=== PATIENT | female | born 1960 | race Caucasian/White ===

== ENCOUNTER → 2017-04-18 | Outpatient (CLI) | payer MEDICAID ==
[~2017-04-18] MED LIST: ALBU17AE3 IH; ALBU2.5V4; ALPR1T PO; AMLO5TAB2; AMLO5TAB2 PO; ATR20T; ATR20T PO; BIOTIN 1000MCG PO; BUDE6HFA IH; CATHETER FLUSH 10 ML SYR IV PRN; CYAN100014 PO; CYAN10007 PO; CYAN500L PO; DIOVAN 160 MG PO; EST.625T; EST.625T PO; EST45C VG; ESTR0.9T PO; FLC150T; FLC1T; FLC1T PO; GABA300C; GBPN300C PO; HCT25T; HCT25T PO; HYDR-3714 PO; HYDR1TAB PO; HYDROCHLOROTHIAZIDE PO; IBUP-1773 PO; INSASP10V SQ; INSU100I23; INSU100V6; INSU100V6 SQ; IPRA3AMP IH; LANS30CA; LANS30CA PO; LVT.05T; LVT.05T PO; MAGN400C PO; MAGNESIUM W/ZINC PO; MNTL10T; MNTL10T PO; MTF500T PO; MUCUS RELIEF 400 MG PO; MULT-608; MULT-608 PO; NFBIOT1000 PO; NITR100C44 PO; OMG1KC PO; OXYB10TA PO; PHEN200T27 PO; POLY500P24; POTA10CA16 PO; POTA10CA43 PO; POTA20PA3; RASP100C PO; RASPBERRY KETONES PO; ROSU10TA12 PO; SCR1T1; SCR1T1 PO; SERT100T; SITA100T PO; SLMFT1E; SOLI10TA4 PO; SRTR100T PO; TIOT18CA; TIOT18CA2 IH; TRAM-21 PO; TROS60CA2 PO; TROSP20C PO; VITAMIN B6 PO; VLS80C; VLS80C PO; ZLP5T; ZLP5T PO; ZOLP5TAB6 PO
--- NOTE | 2017-04-18 14:35 | Diagnostic Imaging Report ---
EXAMINATION: HIDA with EF measurements Indication: Abdominal pain TECHNIQUE: After the intravenous administration of 5.4 mCi of Tc 99m Choletec, imaging over the abdomen was obtained. This was followed by administration of Ensure orally to stimulate intrinsic CCK secretion, followed by continued imaging with ejection fraction measured. FINDINGS: There is homogeneous uptake in the liver with prompt bile duct and gallbladder filling seen. Bowel activity is seen at 25 minutes. Based on further imaging and gallbladder area of interest activity measurements after the administration of Ensure, the gallbladder ejection fraction is estimated at 23%. IMPRESSION: 1. Normal hepatobiliary uptake and Gallbladder filling. 2. Biliary dyskinesia. Poor gallbladder ejection fraction. Dictated by: Dictated on workstation # [id number]
== END ==
LOC: CARD 11:38
PROVIDERS: ATTEND Surgery
DX: K82.8 Other specified diseases of gallbladder (principal)
CPT/HCPCS: 78227

== ENCOUNTER 2017-04-19 13:38 | Outpatient (CLI) | payer MEDICAID ==
[~2017-04-19] VITALS: Ht 165.1 cm; Wt 78.9 kg
[~2017-04-19 13:38] MED LIST changes: -CATHETER FLUSH 10 ML SYR IV PRN
[2017-04-19 14:11] VITALS: BP 130/69
[2017-04-19 14:53] LABS: BASOPHILS # (AUTO) 0.1 10^3/uL (0.0-0.1); BASOPHILS % (AUTO) 1 % (0-10); EOSINOPHILS # (AUTO) 0.3 10^3/uL (0.0-0.3); EOSINOPHILS % (AUTO) 3 % (0-10); LYMPHOCYTES # (AUTO) 3.5 X 10^3 (1.0-4.0); LYMPHOCYTES % (AUTO) 37 % (12-44); MEAN CORPUSCULAR HEMOGLOBIN 30 PG (25-34); MEAN CORPUSCULAR HGB CONC 34 G/DL (32-36); MEAN CORPUSCULAR VOLUME 89 FL (80-99); MONOCYTES # (AUTO) 0.6 X 10^3 (0.0-1.0); MONOCYTES % (AUTO) 7 % (0-12); NEUTROPHILS % (AUTO) 53 % (42-75); PLATELET COUNT 483 10^3/uL (130-400); RED BLOOD COUNT 3.86 10^6/uL (4.35-5.85); RED CELL DISTRIBUTION WIDTH 13.2 % (10.0-14.5); WHITE BLOOD COUNT 9.5 10^3/uL (4.3-11.0)
[2017-04-19 15:03] LABS: INR 0.9 (0.8-1.4); PROTHROMBIN TIME PATIENT 11.7 SEC (12.2-14.7)
[2017-04-19 15:16] LABS: ALANINE AMINOTRANSFERASE 15 U/L (0-55); ALBUMIN 3.6 GM/DL (3.2-4.5); ANION GAP 10 MMOL/L (5-14); ASPARTATE AMINO TRANSFERASE 14 U/L (5-34); BILIRUBIN,DIRECT < 0.1 MG/DL (0.0-0.3); BILIRUBIN,INDIRECT 0.1 MG/DL; BILIRUBIN,TOTAL 0.2 MG/DL (0.1-1.0); BLOOD UREA NITROGEN 7 MG/DL (7-18); BUN/CREATININE RATIO 9; CALCIUM 9.9 MG/DL (8.5-10.1); CARBON DIOXIDE 28 MMOL/L (21-32); CHLORIDE 96 MMOL/L (98-107); CREATININE SERUM 0.77 MG/DL (0.60-1.30); GFR ESTIMATED > 60; GLUCOSE 308 MG/DL (70-105); POTASSIUM 3.5 MMOL/L (3.6-5.0); SODIUM 134 MMOL/L (135-145); TOTAL PROTEIN 7.1 GM/DL (6.4-8.2)
[2017-04-21] MEDS ORDERED: HYDR-3812 PO (13:28)
[2017-04-21] MEDS ORDERED: SERT100T8 PO (13:28)
[2017-04-21] MEDS ORDERED: MULT1CAP27 PO (13:28)
[2017-04-21] MEDS ORDERED: ZOLP5TAB7 PO (13:28)
[2017-04-21] MEDS ORDERED: RASP100C PO (13:28)
[2017-04-21] MEDS ORDERED: MONT10TA24 PO (13:28)
[2017-04-21] MEDS ORDERED: TIOT18CA2 IH (13:28)
[2017-04-21] MEDS ORDERED: CYAN100088 PO (13:28)
[2017-04-21] MEDS ORDERED: PANT40TA3 PO (13:28)
[2017-04-21] MEDS ORDERED: FOLI1TAB24 PO (13:28)
[2017-04-21] MEDS ORDERED: POTA10CA43 PO (13:28)
[2017-04-21] MEDS ORDERED: INSU100V SQ (13:28)
[2017-04-21] MEDS ORDERED: IBUP-1773 PO (13:28)
[2017-04-21] MEDS ORDERED: ESTR0.9T PO (13:28)
[2017-04-21] MEDS ORDERED: LEVO50TA6 PO (13:28)
[2017-04-21] MEDS ORDERED: SUCR1TAB PO (13:28)
[2017-04-21] MEDS ORDERED: NFBIOT1000 PO (13:28)
[2017-04-21] MEDS ORDERED: VALS160T28 PO (13:28)
[2017-04-21] MEDS ORDERED: SITA100T12 PO (13:28)
[2017-04-21] MEDS ORDERED: HYDR25TA4 PO (13:28)
[2017-04-21] MEDS ORDERED: BUDE10.2 IH (13:28)
[2017-04-21] MEDS ORDERED: OMG1KC PO (13:28)
[2017-04-21] MEDS ORDERED: ALPR1TAB7 PO (13:28)
[2017-04-21] MEDS ORDERED: MIRA50TA PO (13:28)
[2017-04-21] MEDS ORDERED: METF500T4 PO (13:28)
[2017-04-21] MEDS ORDERED: GABA-488 PO (13:28)
[2017-04-21] MEDS ORDERED: INSU100V6 SQ ×2 (13:29)
== END 2017-04-19 15:00 ==
LOC: PREOP 13:38
PROVIDERS: ATTEND Surgery
DX: Z01.818 Encounter for other preprocedural examination (principal); K44.9 Diaphragmatic hernia without obstruction or gangrene
CPT/HCPCS: 36415; 80048; 80076; 85025; 85610; 87081

== ENCOUNTER 2017-04-22 07:16 | Day surgery (SDC) | payer MEDICAID ==
[~2017-04-22] VITALS: Ht 165.1 cm; Wt 78.9 kg
[~2017-04-22 07:16] MED LIST changes: +ALPR1TAB7 PO; +BUDE10.2 IH; +CYAN100088 PO; +FOLI1TAB24 PO; +GABA-488 PO; +HYDR-3812 PO; +HYDR25TA4 PO; +INSU100V SQ; +LEVO50TA6 PO; +METF500T4 PO; +MIRA50TA PO; +MONT10TA24 PO; +MULT1CAP27 PO; +PANT40TA3 PO; +SERT100T8 PO; +SITA100T12 PO; +SUCR1TAB PO; +VALS160T28 PO; +ZOLP5TAB7 PO
[2017-04-22 07:20] VITALS: BP 133/89
[2017-04-22 07:25] VITALS: BP 133/89
[2017-04-22] MEDS ORDERED: CATHETER FLUSH 10 ML SYR IV PRN (08:15)
[2017-04-22] MEDS ORDERED: ceFAZolin 1 GM/NS 50 ML IVPB IV ONE ×2 (08:15)
[2017-04-22] MEDS: LACTATED RINGERS 1,000 ML IV PRN ×2 (08:18→09:36)
[2017-04-22] MEDS ORDERED: MELA5TAB14 PO (08:33)
[2017-04-22] MEDS ORDERED: BUPIVACAINE 0.5% 30 ML (SENSORCAINE) VIAL ONE (08:35)
[2017-04-22] MEDS ORDERED: MIDAZOLAM 2 MG/2 ML (VERSED) VIAL ONE (08:54)
[2017-04-22] MEDS ORDERED: SEVOFLURANE (ULTANE) 15 ML INHAL SOLN ONE ×3 (08:54→09:52)
[2017-04-22] MEDS ORDERED: ONDANSETRON 4 MG/2 ML (SDV) Z0FRAN ONE (08:54)
[2017-04-22] MEDS ORDERED: LIDOCAINE PF 2% 5 ML (XYLOCAINE) VIAL ONE (08:54)
[2017-04-22] MEDS ORDERED: fentaNYL INJECTION 100 MCG/2 ML AMP ONE ×2 (08:54→09:30)
[2017-04-22] MEDS ORDERED: ROCURONIUM 50 MG/5 ML (ZEMURON) VIAL IV ONE (08:54)
[2017-04-22] MEDS ORDERED: proPOfol 200 MG/20 ML (DIPRIVAN) VIAL IV ONE (08:54)
--- NOTE | 2017-04-22 09:07 | Progress Note-Pre Operative ---
Pre-Operative Progress Note H&P Reviewed The H&P was reviewed, patient examined and no changes noted. Time Seen by Provider: 09:00 Date H&P Reviewed: Apr 22, 2017 Time H&P Reviewed: 09:00 Pre-Operative Diagnosis: Biliary Dyskinesia SRI LINDSEY DO Apr 22, 2017 09:07
[2017-04-22] MEDS ORDERED: HYDROcodone/APAP 5 MG/325 MG (LORTAB) TAB PO PRN (09:15)
[2017-04-22] MEDS ORDERED: HYDR-3812 PO (09:20)
[2017-04-22] MEDS ORDERED: GLYCOPYRROLATE 0.2 MG/ML (ROBINUL) 2 ML VIAL ONE (09:50)
[2017-04-22] MEDS ORDERED: NEOSTIGMINE (BLOXIVERZ ) 1 MG/1ML 10 ML VIAL ONE (09:50)
[2017-04-22] MEDS ORDERED: morphine INJ 10 MG/ML 1ML (SYR OR VIAL) IVP PRN (10:15)
[2017-04-22] MEDS ORDERED: ONDANSETRON 4 MG/2 ML (SDV) Z0FRAN IVP PRN (10:15)
[2017-04-22] MEDS: HYDROmorphone (DILAUDID) 2 MG/ML VIAL IVP PRN ×3 (10:32→10:52)
[2017-04-22 11:15] VITALS: BP 134/77
[2017-04-22 11:45] VITALS: BP 135/75
[2017-04-22 12:15] VITALS: BP 146/74
--- OUTSIDE RECORDS SUMMARY | 2017-04-22 21:05 | XMS REPORT ---
Author Author [facility]Z [facility] Address [address] [place] [address] Care Team Providers Care Loom Checker Name Role Phone BRANDYN RAMIREZ Unavailable PROBLEMS Unknown Problems ALLERGIES No Information SOCIAL HISTORY Never Assessed PLAN OF CARE VITAL SIGNS MEDICATIONS No Known Medications RESULTS No Results PROCEDURES No Known procedures IMMUNIZATIONS No Known Immunizations MEDICAL (GENERAL) HISTORY Type Description Date Medical History Diabetic Medical History Palamanery stenosies Medical History High blood pres Medical History Low thyerorid Surgical History carpel tunnel left wrist JulSeptember 2016 Surgical History carpel tunnel right wrist 2016 Surgical History Left arm compound compress nerve September 2016 Surgical History tuble lygation 1982 Surgical History exploratory surg. 1983 Surgical History historictomy jun Surgical History carpel tunnel release both wrist 1985 Surgical History 3 bladder surg and 2 rectacile repair [id number]
--- NOTE | 2017-04-26 11:20 | OPERATIVE REPORT ---
DATE OF SERVICE: PREOPERATIVE DIAGNOSIS: Biliary dyskinesia. POSTOPERATIVE DIAGNOSIS: Biliary dyskinesia. SURGEON: Radha Lindsey DO ANESTHESIA: General. PROCEDURE: Laparoscopic cholecystectomy. INDICATION FOR PROCEDURE: The patient is a 56-year-old female who complained of postprandial pain. Ultrasound was normal. HIDA scan showed biliary dyskinesia. Case was discussed with the patient. Informed consent was obtained for procedure. DESCRIPTION OF OPERATIVE PROCEDURE: The patient was placed in supine position, prepped and draped in the usual sterile manner. The abdomen was entered using a 5 mm port in the left upper quadrant. Pneumoperitoneum was established. A generalized examination of the abdomen was performed. Four other ports were placed in the appropriate position. Next, the fundus of the gallbladder was grasped and retracted cephaladly. The infundibulum was grasped and retracted laterally. The cystic duct was dissected circumferentially. Three clips were placed proximal, one distal. The cystic duct was then cut. The cystic artery was then dissected circumferentially. Two clips were placed proximal, one distal. Cystic artery was then cut. The gallbladder was dissected off the liver bed using electrocautery. After this was done, it was placed in an Endocatch bag and removed from the abdomen. Hemostasis was then achieved. After that, irrigation was used. The 12-mm ports were closed using 0 Vicryl under direct visualization. Next, pneumoperitoneum was allowed to escape the abdominal cavity. Everything looked good. All ports were removed under direct visualization. Next, the skin incision was closed using 4-0 Monocryl. Dry dressings were then placed. There were no complications. Job ID: [id number] DocumentID: [id number] Dictated Date: 04/25/2017 14:47:53 Hr Analyst Date: 04/26/2017 02:24:40 Dictated By: RADHA LINDSEY DO
== END 2017-04-22 12:35 | disposition home or self-care (01) ==
LOC: SDC 07:16
PROVIDERS: ATTEND Surgery
DX: K82.8 Other specified diseases of gallbladder (principal); I10 Essential (primary) hypertension; E78.5 Hyperlipidemia, unspecified; F17.210 Nicotine dependence, cigarettes, uncomplicated; J44.9 Chronic obstructive pulmonary disease, unspecified; G43.909 Migraine, unspecified, not intractable, without status migrainosus; F41.9 Anxiety disorder, unspecified; M54.9 Dorsalgia, unspecified; E11.9 Type 2 diabetes mellitus without complications; E03.9 Hypothyroidism, unspecified; Z79.899 Other long term (current) drug therapy
CPT/HCPCS: 82962; 94664

== ENCOUNTER → 2018-01-13 | Outpatient (CLI) | payer MEDICAID ==
[~2018-01-13] MED LIST changes: +ACHD5005 PO; -HYDR-3812 PO; +MELA5TAB14 PO; -METF500T4 PO; +METF500T5 PO; +RT-ALBUTEROL SULF 2.5 MG/3 ML PRE-MIX VIAL INH ONE; -VALS160T28 PO; +VALS160T29 PO
== END ==
LOC: RT 15:28
PROVIDERS: ATTEND Nurse Practitioner Family
DX: I37.0 Nonrheumatic pulmonary valve stenosis (principal); R06.09 Other forms of dyspnea; E78.5 Hyperlipidemia, unspecified; I10 Essential (primary) hypertension
CPT/HCPCS: 94060; 94726; 94729

== ENCOUNTER → 2018-01-19 | Outpatient (CLI) | payer MEDICAID ==
[~2018-01-19] MED LIST changes: -RT-ALBUTEROL SULF 2.5 MG/3 ML PRE-MIX VIAL INH ONE
== END ==
LOC: CARD 12:13
PROVIDERS: ATTEND Nurse Practitioner Family
DX: I37.0 Nonrheumatic pulmonary valve stenosis (principal); R06.09 Other forms of dyspnea; I10 Essential (primary) hypertension; E78.5 Hyperlipidemia, unspecified
CPT/HCPCS: 93306

== ENCOUNTER → 2018-09-21 | Outpatient (CLI) | payer MEDICAID ==
[~2018-09-21] MED LIST changes: +METF-397 PO; -METF500T5 PO
--- NOTE | 2018-09-21 19:50 | Diagnostic Imaging Report ---
INDICATION: History of tobacco use with a 44 pack year history. Current tobacco use. TECHNIQUE: Noncontrast, low-dose CT imaging performed according to lung cancer screening protocol. COMPARISON: CT chest, 04/01/2016. FINDINGS: HEART/MEDIASTINUM: Heart size normal. Thoracic aortic contour unremarkable. A few small, non-pathologically enlarged mediastinal lymph nodes are present. LUNGS: Mildly advanced emphysematous changes are present. No focal infiltrate. MEASURED PULMONARY NODULES: Calcified granuloma. Right lower lobe and superior aspect right middle lobe adjacent to fissure plane. Image 137/272, faint wispy-like nodular density about the medial posterior right lower lobe, less than 4 mm in size. OTHER: None. IMPRESSION: Small calcified granuloma as well as faint wispy-like nodular density in the right lower lobe. Mildly advanced emphysematous changes present. LUNG-RADS CATEGORY: 2A LUNG SCREENING MANAGEMENT/RECOMMENDATIONS: Continued annual screening with low dose CT in 12 months. Notes: Lung rads category 1 or 2 does not mean that an individual does not have lung cancer or other active disease process, but rather nothing is identified to meet criteria for current lung pathology. Therefore, continued annual lung cancer screening should be performed. It is noted that this is a low dose CT examination. As a technical result, the examination is limited in overall assessment compared to a conventional CT examination of the chest. Dictated by: Dictated on workstation # [id number]
== END ==
LOC: RAD 14:03
PROVIDERS: ATTEND Nurse Practitioner Family
DX: Z12.2 Encounter for screening for malignant neoplasm of respiratory organs (principal); J84.10 Pulmonary fibrosis, unspecified; J43.9 Emphysema, unspecified; F17.210 Nicotine dependence, cigarettes, uncomplicated; J45.909 Unspecified asthma, uncomplicated

== ENCOUNTER 2018-09-26 14:39 | Outpatient (CLI) | payer MEDICAID ==
[~2018-09-26] VITALS: Ht 165.1 cm; Wt 77.6 kg
[2018-09-26] MEDS ORDERED: ASPI-586 PO (15:08)
[2018-09-26] MEDS ORDERED: ATOR20TA66 PO (15:08)
[2018-09-26] MEDS ORDERED: ALB0.5V INH (15:08)
[2018-09-26] MEDS ORDERED: MELA10CA2 PO (15:08)
[2018-09-26] MEDS ORDERED: HYDR-3812 PO (15:08)
[2018-09-26] MEDS ORDERED: ZOLP5TAB7 PO (15:08)
[2018-09-26] MEDS ORDERED: ESTR0.9T PO (15:08)
[2018-09-26] MEDS ORDERED: RT-ALBUINH IH (15:08)
[2018-09-26] MEDS ORDERED: GUAI400T44 PO (15:08)
[2018-09-26] MEDS ORDERED: MAGN400T7 PO (15:08)
[2018-09-26 15:39] VITALS: BP 151/74
== END 2018-09-26 15:52 | disposition home or self-care (01) ==
LOC: PREOP 14:39
PROVIDERS: ATTEND Orthopaedic Surgery Orthopaedic Surgery of the Spine
DX: Z01.818 Encounter for other preprocedural examination (principal)
CPT/HCPCS: 87081

== ENCOUNTER 2018-10-09 07:06 | Day surgery (SDC) | payer MEDICAID ==
[~2018-10-09] VITALS: Ht 165.1 cm; Wt 77.6 kg
[~2018-10-09 07:06] MED LIST changes: +ALB0.5V INH; +ASPI-586 PO; +ATOR20TA66 PO; +GUAI400T44 PO; +HYDR-3812 PO; +MAGN400T7 PO; +MELA10CA2 PO; +RT-ALBUINH IH
--- OUTSIDE RECORDS SUMMARY | 2018-10-09 07:09 | XMS REPORT ---
Author Author BRANDYN RAMIREZ Organization [facility] Address [address] [place] [address] Care Team Providers Care Electric Lift Truck Driver Name Role Phone BRANDYN RAMIREZ Unavailable PROBLEMS Unknown Problems ALLERGIES Substance Reaction Event Type Date Status Oxycel Cotton-Type Pledget Unknown Drug Allergy Oct, Active SOCIAL HISTORY Never Assessed PLAN OF CARE VITAL SIGNS Blood pressure systolic 115 mmHg 2016-10-18 Blood pressure diastolic 64 mmHg 2016-10-18 MEDICATIONS Medication Instructions Dosage Frequency Start Date End Date Duration Status Fish Oil Active Humalog Active Sertraline HCl Active Myrbetriq Active Potassium Active Hydrochlorothiazide Active Januvia Active Valsartan Active Zolpidem & Diet Manage Prod Active Wzckzcnjcjl-WXEN-Exyrhmb Prod Active Biotin Active Folic Acid Active Metformin & Diet Manage Prod Active Symbicort Active Sucralfate Active Multivitamin Adults 50+ Active Lantus Active Premarin Active Alprazolam Active BD Insulin Syringe Half-Unit Active ibuprofen Active Gabapentin Active Pantoprazole Sodium Active Spiriva HandiHaler Active Amoxicillin 500 MG Orally 4 times a day 1 capsule 6h 10 days Active Levothyroxine Sodium Active Vitamin B 12 Active Montelukast Sodium Active RESULTS No Results PROCEDURES Procedure Date Ordered Result Body Site LTD ORAL EVALUATION - PROBLEM FOCUS October 18, 2016 INTRAORL-PERIAPICAL 1 FILM 10049 October 18, 2016 PANORAMIC FILM SEE ALSO CODE 84006 October 18, 2016 IMMUNIZATIONS No Known Immunizations MEDICAL (GENERAL) HISTORY Type Description Date Medical History Diabetic Medical History Palamanery stenosies Medical History High blood pres Medical History Low thyerorid Surgical History carpel tunnel left wrist JulSeptember 2016 Surgical History carpel tunnel right wrist b 2016 Surgical History Left arm compound compress nerve September 2016 Surgical History tuble lygation 1982 Surgical History exploratory surg. 1983 Surgical History historictomy jun Surgical History carpel tunnel release both wrist 1985 Surgical History 3 bladder surg and 2 rectacile repair [id number]
--- OUTSIDE RECORDS SUMMARY | 2018-10-09 07:09 | XMS REPORT ---
Author Author [facility]Z [facility] [place] Address [address] [place] [address] Care Team Providers Care Audio Visual Aids Director Name Role Phone BRANDYN RAMIREZ Unavailable PROBLEMS Unknown Problems ALLERGIES Substance Reaction Event Type Date Status Oxycel Cotton-Type Pledget Unknown Drug Allergy November, Active ENCOUNTERS Encounter Location Date Diagnosis [facility] [place] [address] [place] [address] [address] [id number] [place] [id number] November, Dental examination Z01.20 [facility] [address] [place] [address] [address] [id number] [place] [id number] November, Dental examination Z01.20 [facility] [place] [address] [place] [address] [address] [id number] [place] [id number] 16 Oct, 2016 [facility] [place] [address] [place] [address] [address] [id number] [place] [id number] Oct, [facility] [place] [address] [place] [address] [address] [id number] [place] [id number] Oct, [facility] [place] [address] [place] [address] [address] [id number] [place] [id number] Oct, Dental examination Z01.20 [facility] [place] [address] [place] [address] [address] [id number] [place] [id number] Sep, [facility] [place] [address] [place] [address] [address] [id number] [place] [id number] Aug, [facility] [address] [facility] [id number] [place] [id number] May, IMMUNIZATIONS No Known Immunizations SOCIAL HISTORY Never Assessed REASON FOR VISIT recheck PLAN OF CARE VITAL SIGNS MEDICATIONS Medication Instructions Dosage Frequency Start Date End Date Duration Status Vitamin B 12 Active Alprazolam Active Pantoprazole Sodium Active Symbicort Active Sertraline HCl Active Myrbetriq Active Januvia Active Amoxicillin 500 MG Orally 4 times a day 1 capsule 6h 10 days Active Zolpidem & Diet Manage Prod Active Hydrochlorothiazide Active Biotin Active Fish Oil Active Potassium Active Humalog Active BD Insulin Syringe Half-Unit Active Spiriva HandiHaler Active Vnbmaufefhm-NGQG-Ahzyigg Prod Active Valsartan Active Folic Acid Active Metformin & Diet Manage Prod Active Premarin Active Montelukast Sodium Active Gabapentin Active ibuprofen Active Sucralfate Active Lantus Active Levothyroxine Sodium Active Multivitamin Adults 50+ Active Amoxicillin 500 MG 4 capsules one hour before dental treatment Active RESULTS No Results PROCEDURES Procedure Date Ordered Result Body Site Dental no charge November 25, 2016 INSTRUCTIONS MEDICATIONS ADMINISTERED No Known Medications MEDICAL (GENERAL) HISTORY Type Description Date Medical [...] 3 bladder surg and 2 rectacile repair [id number]
--- OUTSIDE RECORDS SUMMARY | 2018-10-09 07:09 | XMS REPORT ---
Author Author [facility] [place] Address [address] [place] [address] Care Team Providers Care Pattern Filer Name Role Phone BRANDYN RAMIREZ Unavailable PROBLEMS [...] 3 bladder surg and 2 rectacile repair [id number]
--- OUTSIDE RECORDS SUMMARY | 2018-10-09 07:09 | XMS REPORT ---
Author Author [facility]Z [facility] [place] Address [address] [place] [address] Care Team Providers Care Book Trimmer Name Role Phone BRANDYN RAMIREZ Unavailable PROBLEMS Unknown Problems ALLERGIES Substance Reaction Event Type Date Status Oxycel Cotton-Type Pledget Unknown Drug Allergy November, Active ENCOUNTERS Encounter Location Date Diagnosis [facility] [place] [address] [place] [address] [address] [id number] [place] [id number] November, [facility] [place] [address] [place] [address] [address] [id number] [place] [id number] November, [facility]01.[facility] [place] [address] [place] [address] [address] [id number] [place] [id number] 16 Oct, 2016 [facility] [place] [address] [place] [address] [address] [id number] [place] [id number] Oct, [facility] [place] [address] [place] [address] [address] [id number] [place] [id number] Oct, [facility] [place] [address] [place] [address] [address] [id number] [place] [id number] Oct, Dental examination Z01.20 [facility] [place] [address] [place] [address] [address] [id number] [place] [id number] Sep, [facility] [place] [address] [place] [address] [address] [id number] [place] [id number] Aug, [facility] [address] [facility] [id number] [place] [phone] May, IMMUNIZATIONS No Known Immunizations SOCIAL HISTORY Never Assessed REASON FOR VISIT o and r #22 PLAN OF CARE Activity Details Follow Up FATOUMATA/Prophy Reason: VITAL SIGNS Blood pressure systolic 138 mmHg 2016-11-11 Blood pressure diastolic 91 mmHg 2016-11-11 MEDICATIONS Medication Instructions Dosage Frequency Start Date End Date Duration Status Vitamin B 12 Active Folic Acid Active Potassium Active Sucralfate Active ibuprofen Active Yxjgrwawvll-QPBL-Amfbdle Prod Active Januvia Active Amoxicillin 500 MG 4 capsules one hour before dental treatment Active Zolpidem & Diet Manage Prod Active Hydrochlorothiazide Active Multivitamin Adults 50+ Active Biotin Active Pantoprazole Sodium Active Metformin & Diet Manage Prod Active Premarin Active BD Insulin Syringe Half-Unit Active Myrbetriq Active Lantus Active Alprazolam Active Levothyroxine Sodium Active Spiriva HandiHaler Active Montelukast Sodium Active Amoxicillin 500 MG Orally 4 times a day 1 capsule 6h 10 days Active Sertraline HCl Active Symbicort Active Valsartan Active Humalog Active Fish Oil Active Gabapentin Active RESULTS No Results PROCEDURES Procedure Date Ordered Result Body Site RSN COMPOS-4/> SURF/W/INCISAL ANG November 11, 2016 Billing Notes on claim November 11, 2016 INSTRUCTIONS MEDICATIONS ADMINISTERED No Known Medications [...] 3 bladder surg and 2 rectacile repair [id number]
[2018-10-09 07:10] VITALS: BP 175/90
--- OUTSIDE RECORDS SUMMARY | 2018-10-09 07:12 | XMS REPORT | Continuity of Care Document ---
Author Author [facility] [address] Organization [facility] [address] Address Unknown Phone Unavailable Allergies Active Description Code Type Severity Reaction Onset Reported/Identified Relationship to Patient Clinical Status Yes OXYCONTIN OXYCONTIN SEVERE Yes OxyCONTIN Drug N/A [id number] Yes HYDROCODONE-ACETAMINOPHEN UNKNOWN UNKNOWN Yes OXYCONTIN SEVERE RESPIRATORY DISTRESS Yes oxycodone [id number] Drug Allergy Mild UPSET STOMACH 10/30/2009 Yes aspirin [id number] Drug Allergy Unknown GI BLEED 10/30/2009 Yes oxycodone [id number] Drug Allergy Severe RESP DEPRESSION 04/19/2017 Yes morphine [id number] Drug Allergy Severe SEVERE GI UPSET 04/22/2017 Medications Medication Packaging Start Date Stop Date Route Dosage Sig NORMAL SALINE 1000CC IV BAG INJ 0.9 % (NS 1000CC IV BAG) ml 07/08/2016 07/23/2016 CONTINUOUSEVERY 0 Hour IPRATROPIUM/ALBUTEROL INH SOLN INH 0 (DUO-NEB INH SOLN) MLS 07/26/2016 08/02/2016 QID&0600,1100,1600,2100 NORMAL SALINE 1000CC IV BAG INJ 0.9 % (NS 1000CC IV BAG) ml 08/19/2016 09/03/2016 CONTINUOUSEVERY 0 Hour INSULIN REGULAR HUMAN INJ 100 UNITS/CC (HUMULIN R / NOVOLIN R INSULIN) UNITS 08/19/2016 08/19/2016 ONCE&0832 CEFAZOLIN VIAL INJ 1 GM (ANCEF) GM 08/19/2016 08/19/2016 ONCE&0845 HYDROCODONE/APAP 7.5/325 TAB 0 (MADI-TAB 7.5/325) TAB 08/19/2016 08/19/2016 ONCE&0936 HYDROMORPHONE AMP INJ 2 MG/CC (DILAUDID 1CC AMP) MG 08/19/2016 08/19/2016 ONCE&0950 NORMAL SALINE 1000CC IV BAG INJ 0.9 % (NS 1000CC IV BAG) ml 09/30/2016 10/15/2016 CONTINUOUSEVERY 0 Hour NORMAL SALINE 1000CC IV BAG INJ 0.9 % (NS 1000CC IV BAG) ml 02/22/2017 03/09/2017 CONTINUOUSEVERY 0 Hour TETANUS,DIPTH,PERT ADULT INJ 0 (ADACEL SYRINGE) ml 03/03/2017 03/03/2017 ONCE&2139 IBUPROFEN TAB 600 MG (MOTRIN) MG 09/08/2017 PRN TID LEVOFLOXACIN TAB 750 MG (LEVAQUIN) MG 09/01/2017 09/01/2017 ONCE&1415 INSULIN LISPRO VIAL INJ 100 UNITS/CC (HUMALOG VIAL) UNITS 09/01/2017 09/01/2017 ONCE&0630,1130,1630 LANTUS 100 UNITS/ML VIAL (insulin glargine) subQ solution UNITS 09/01/2017 09/01/2017 ONCE&0800,2000 CEFEPIME PREMIX BAG IV 1 GM/50CC (MAXIPIME PREMIX BAG) GM 09/01/2017 09/08/2017 BID&0300,1500 Pneumococcal 23-ted vaccine inj syringe (PneumoVax-23) CLINICS ML 09/01/2017 09/01/2017 ONCE&1533 Fluarix QUAD [id number] (PF) (flu vac 36mos up(PF)Adult IM syringe ML 09/01/2017 09/01/2017 ONCE&1551 IPRATROPIUM/ALBUTEROL INH SOLN (DUO-NEB INH SOLN) MLS 09/01/2017 09/08/2017 QID&0600,1100,1600,2100 INSULIN ASPART PEN INJ 100 UNITS/CC (NOVOLOG FLEXPEN) UNITS 09/01/2017 10/01/2017 AC&0630,1130,1630 INSULIN LISPRO VIAL INJ 100 UNITS/CC (HUMALOG VIAL) UNITS 09/01/2017 09/11/2017 AC&0630,1130,1630 LACTOBACILLUS BULGARIS TAB (LACTINEX BULGARIS) tab 09/01/2017 09/11/2017 QID&0800,1200,1700,2200 SUCRALFATE TAB 1 GM (CARAFATE) GM 09/01/2017 09/11/2017 QID&0800,1200,1700,2200 HYDROCODONE/APAP 5MG/325MG TAB 5 MG/325MG (MADI-TAB 5/325) TAB 09/01/2017 09/11/2017 PRN Q6H BUDESONIDE/FORMOTEROL INH 160 /4.5MCG (SYMBICORT) PUFF 09/01/2017 09/08/2017 Q12H&0600,1800 POTASSIUM CHLORIDE TAB 10 MEQ (K-DUR) TABLET(S ) 09/01/2017 09/11/2017 BID&0800,2000 METFORMIN TAB 500 MG (GLUCOPHAGE) MG 09/01/2017 09/11/2017 BID&0800,2000 ALPRAZOLAM TAB 1 MG (XANAX) MG 09/11/2017 PRN BID LANTUS 100 UNITS/ML VIAL (insulin glargine) subQ solution UNITS 09/01/2017 09/11/2017 BID&0800,2000 CEFEPIME PREMIX BAG IV 1 GM/50CC (MAXIPIME PREMIX BAG) GM 09/01/2017 09/08/2017 BID&0800,2000 INSULIN DETEMIR PEN INJ 100 UNITS/CC (LEVEMIR FLEXPEN) UNITS 09/01/2017 09/30/2017 QHS&2100 INSULIN ASPART PEN INJ 100 UNITS/CC (NOVOLOG FLEXPEN) UNITS 09/01/2017 09/01/2017 ONCE&2234 PREMARIN 0.625 MG TABLET (conjugated estrogens) oral tablet Dose(s) 09/02/2017 09/11/2017 QAM&0800 VALSARTAN TAB 80 MG (DIOVAN) MG 09/11/2017 QAM&0800 SITAGLIPTIN TAB 100 MG (JANUVIA) MG 09/02/2017 09/11/2017 QAM&0800 PANTOPRAZOLE TAB 40 MG (PROTONIX) MG 09/02/2017 09/11/2017 Daily&0900 SERTRALINE TAB 50 MG (ZOLOFT) MG 09/08/2017 Daily&0900 GABAPENTIN CAP 300 MG (NEURONTIN) MG 09/02/2017 09/08/2017 Daily&0900 FOLIC ACID TAB 1 MG MG 09/02/2017 09/11/2017 Daily& 0900 HYDROCHLOROTHIAZIDE CAP 12.5 MG (HYDRODIURIL) MG 09/02/2017 09/11/2017 Daily&0900 LEVOFLOXACIN PREMIX IV BAG INJ 750 MG (LEVAQUIN PREMIX IV BAG) MG 09/02/2017 09/08/2017 Daily&0900 Hydrochlorothiazide oral tablet 25mg MG 09/02/2017 09/08/2017 Daily&0900 TIOTROPIUM CAP 18 MCG (SPIRIVA) MCG 09/02/2017 09/08/2017 Daily&0900 LEVOTHYROXINE TAB 50 MCG (SYNTHROID) MCG 09/02/2017 09/11/2017 Daily&0900 MONTELUKAST TAB 10 MG (SINGULAIR) MG 09/02/2017 09/11/2017 Daily&0900 PANTOPAZOLE VIAL INJ 40 MG (PROTONIX IV) MG 09/02/2017 09/11/2017 Daily&0900 GUAIFENESIN TAB 600 MG (MUCINEX) MG 09/02/2017 09/09/2017 Q12H&0600,1800 ONDANSETRON VIAL INJ 4 MG/2CC (ZOFRAN 2CC VIAL) MG 09/03/2017 09/10/2017 PRN Q6H ACETAMINOPHEN ORAL TABLET 325mg(Tylenol) MG 09/04/2017 10/03/2017 PRN EVERY 4 Hour NORMAL SALINE 1000CC IV BAG INJ 0.9 % (NS 1000CC IV BAG) ml 09/04/2017 09/19/2017 CONTINUOUSEVERY 0 Hour TRIAMCINOLONE FORTE INJ 40 MG/CC (KENALOG) MG 10/15/2017 10/15/2017 ONCE&2324 LACTATED RINGERS 1000CC IV BAG INJ ml 10/27/2017 11/03/2017 CONTINUOUSEVERY 0 Hour CEFAZOLIN VIAL INJ 1 GM (ANCEF) GM 10/27/2017 10/27/2017 ONCE&0715 FENTANYL INJ 100 MCG/2CC VIAL MCG 10/27/2017 10/27/2017 ONCE&1003 HYDROCODONE/APAP 5MG/325MG TAB 5 MG/325MG (MADI-TAB 5/325) TAB 04/27/2018 04/27/2018 PRN ONCE KETOROLAC VIAL INJ 60 MG/2CC (TORADOL VIAL) MG 04/27/2018 04/27/2018 ONCE&1120 Flu vacc [id number] Persons 6mo T older(PF) IM syringe/vial(Fluarix QUAD) Adult ML 04/27/2018 04/27/2018 ONCE&1220 ORPHENADRINE INJ 60 MG/2CC (NORFLEX) MG 09/19/2018 09/19/2018 ONCE&1813 KETOROLAC VIAL INJ 60 MG/2CC (TORADOL VIAL) MG 09/19/2018 09/19/2018 ONCE&1813 PREDNISONE TAB 10 MG (DELTASONE) MG 09/19/2018 09/19/2018 ONCE&1838 Problems Date Dx Coded Attending Type Code Diagnosis Diagnosed By KALEN WHITTEN APRN Ot J18.9 PNEUMONIA, UNSPECIFIED ORGANISM 11/18/2009 Ot 041.84 BACTERIAL INFECTION DUE TO OTHER ANAEROB 11/18/2009 Ot 250.00 DIAB SAMEER WO COMPL, TYPE II OR UNSPEC TY 11/18/2009 Ot 682.2 CELLULITIS OF TRUNK 11/18/2009 Ot 998.12 HEMATOMA COMPLIC A PROC 11/18/2009 Ot 998.59 OTH POSTOPER INFECTION 11/24/2009 Ot 250.00 11/24/2009 Ot 305.1 11/24/2009 Ot 417.8 11/24/2009 Ot 682.2 11/24/2009 Ot 998.59 05/28/2010 Ot 214.1 05/28/2010 Ot 530.11 05/28/2010 Ot 553.3 05/28/2010 Ot V58.69 05/09/2013 JET MENDEZ, BA Marie Ot 250.00 DIAB SAMEER WO COMPL, TYPE II OR UNSPEC TY 05/09/2013 BA CHAUDHARY MD Ot 618.04 RECTOCELE 05/09/2013 BA CHAUDHARY MD Ot V03.82 PROPHYLACTIC VACC AGAINST STREPTOCOCCUS 05/09/2013 BA CHAUDHARY MD Ot V04.81 ND FOR PROPHYLACTIC VACCIN AND INOCULATI 05/09/2013 BA CHAUDHARY MD Ot V58.67 LONG-TERM (CURRENT) USE OF INSULIN 10/26/2013 RONNA VIDES DO Ot 296.90 UNSPECIFIED EPISODIC MOOD DISORDER 10/26/2013 RONNA VIDES DO Ot 401.9 HYPERTENSION NOS 10/26/2013 RONNA VIDES DO Ot 780.52 INSOMNIA, UNSPECIFIED 10/26/2013 RONNA VIDES DO Ot 784.0 HEADACHE 10/26/2013 RONNA VIDES DO Ot 786.09 RESPIRATORY ABNORM NEC 06/08/2014 CHOU, PETER J NETWORK ADMINISTRATOR Ot 250.00 DIAB SAMEER WO COMPL, TYPE II OR UNSPEC TY 06/08/2014 DILSHAD CHOU NETWORK ADMINISTRATOR Ot 724.2 LUMBAGO 06/08/2014 DILSHAD CHOU NETWORK ADMINISTRATOR Ot 724.4 LUMBOSACRAL NEURITIS NOS 06/08/2014 DILSHAD CHOU NETWORK ADMINISTRATOR Ot V58.67 LONG-TERM (CURRENT) USE OF INSULIN 06/08/2014 DILSHAD CHOU NETWORK ADMINISTRATOR Ot V58.69 OTH MED,LT,CURRENT USE 11/22/2014 Ot 618.04 11/22/2014 Ot 625.6 11/22/2014 Ot V72.63 11/22/2014 Ot V72.81 11/22/2014 Ot V74.8 11/22/2014 Ot 396.3 11/22/2014 Ot 397.0 11/22/2014 Ot 417.8 11/22/2014 Ot 272.4 11/22/2014 Ot 401.9 11/22/2014 Ot 786.09 11/22/2014 Ot 780.50 11/22/2014 Ot 250.00 11/22/2014 Ot 780.79 11/22/2014 Ot V58.69 11/22/2014 Ot 531.90 11/22/2014 Ot 553.3 11/22/2014 Ot 733.90 11/22/2014 Ot V72.83 11/22/2014 Ot V74.8 11/22/2014 Ot 250.00 11/22/2014 Ot 272.4 11/22/2014 Ot 276.8 11/22/2014 Ot 244.9 11/22/2014 Ot 272.4 11/22/2014 Ot 250.00 11/22/2014 Ot 272.4 11/22/2014 Ot 397.0 11/22/2014 Ot 746.02 11/22/2014 Ot 786.50 11/22/2014 Ot V58.69 11/22/2014 Ot 272.4 11/22/2014 Ot 746.02 11/22/2014 Ot 786.50 11/22/2014 Ot V58.69 11/22/2014 Ot 250.00 11/22/2014 Ot 401.9 11/22/2014 Ot 424.3 11/22/2014 Ot 786.09 11/22/2014 COOKIE MENDEZ FACC, RANCHO SIMS CCDS Ot 416.8 11/22/2014 COOKIE MD FACC, ALI FACP CCDS Ot 786.09 11/22/2014 JET MENDEZ, BA A Ot 618.04 11/22/2014 JET MENDEZ, BA A Ot V72.63 11/22/2014 JET MENDEZ, BA A Ot V74.8 11/22/2014 JET MENDEZ, BA Marie Ot V76.12 11/22/2014 COOKIE MENDEZ FACC, ALI FACP CCDS Ot 250.00 11/22/2014 COOKIE MENDEZ FACC, ALI FACP CCDS Ot 401.9 11/22/2014 COOKIE MENDEZ FACC, ALI FACP CCDS Ot 424.3 11/22/2014 COOKIE MENDEZ FACC, ALI FACP CCDS Ot 729.81 11/22/2014 COOKIE MENDEZ FACC, ALI FACP CCDS Ot 250.00 11/22/2014 COOKIE MENDEZ FACC, ALI FACP CCDS Ot 401.9 11/22/2014 COOKIE MENDEZ FACC, ALI FACP CCDS Ot 416.8 11/22/2014 COOKIE MENDEZ FACC, ALI FACP CCDS Ot 424.3 11/22/2014 COOKIE MENDEZ FACC, ALI FACP CCDS Ot 729.81 11/22/2014 COOKIE MENDEZ FACC, ALI FACP CCDS Ot 250.00 11/22/2014 COOKIE MENDEZ FACC, ALI FACP CCDS Ot 401.9 11/22/2014 COOKIE MENDEZ FACC, ALI FACP CCDS Ot 424.3 11/22/2014 COOKIE MENDEZ FACC, ALI FACP CCDS Ot 729.81 11/26/2014 PAUL SELLERS MD Ot 596.51 HYPERTONICITY OF BLADDER 11/26/2014 PAUL SELLERS MD Ot 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 11/26/2014 PAUL SELLERS MD Ot 788.30 UNSPECIFIED URINARY INCONTINENCE 11/26/2014 PAUL SELLERS MD Ot V58.69 OT MED,LT,CURRENT USE 12/20/2014 PAUL SELLERS MD Ot 596.51 12/20/2014 PAUL SELLERS MD Ot 599.82 12/20/2014 PAUL SELLERS MD Ot 788.30 12/20/2014 CAROLA SELLERS MDAS A Ot V72.63 12/20/2014 VERITO MENDEZ, PAUL Marie Ot V74.8 01/06/2015 Ot 618.04 01/06/2015 Ot 625.6 01/06/2015 Ot V72.63 01/06/2015 Ot V72.81 01/06/2015 Ot V74.8 01/06/2015 Ot 396.3 01/06/2015 Ot 397.0 01/06/2015 Ot 417.8 01/06/2015 Ot 272.4 01/06/2015 Ot 401.9 01/06/2015 Ot 786.09 01/06/2015 Ot 780.50 01/06/2015 Ot 250.00 01/06/2015 Ot 780.79 01/06/2015 Ot V58.69 01/06/2015 Ot 531.90 01/06/2015 Ot 553.3 01/06/2015 Ot 733.90 01/06/2015 Ot V72.83 01/06/2015 Ot V74.8 01/06/2015 Ot 250.00 01/06/2015 Ot 272.4 01/06/2015 Ot 276.8 01/06/2015 Ot 244.9 01/06/2015 Ot 272.4 01/06/2015 Ot 250.00 01/06/2015 Ot 272.4 01/06/2015 Ot 397.0 01/06/2015 Ot 746.02 01/06/2015 Ot 786.50 01/06/2015 Ot V58.69 01/06/2015 Ot 272.4 01/06/2015 Ot 746.02 01/06/2015 Ot 786.50 01/06/2015 Ot V58.69 01/06/2015 Ot 250.00 01/06/2015 Ot 401.9 01/06/2015 Ot 424.3 01/06/2015 Ot 786.09 01/06/2015 COOKIE MENDEZ FACC, RANCHO ELAMP CCDS Ot 416.8 01/06/2015 COOKIE MENDEZ FACC, RANCHO FACP CCDS Ot 786.09 01/06/2015 JET MENDEZ, BA Marie Ot 618.04 01/06/2015 JET MENDEZ, BA Marie Ot V72.63 01/06/2015 JET MENDEZ, AB Marie Ot V74.8 01/06/2015 JET MENDEZ, BA A Ot V76.12 01/06/2015 COOKIE MENDEZ FACC, ALI FACP CCDS Ot 250.00 01/06/2015 COOKIE MENDEZ FACC, ALI FACP CCDS Ot 401.9 01/06/2015 COOKIE MENDEZ FACC, ALI FACP CCDS Ot 424.3 01/06/2015 COOKIE MENDEZ FACC, ALI FACP CCDS Ot 729.81 01/06/2015 COOKIE MENDEZ FACC, ALI FACP CCDS Ot 250.00 01/06/2015 COOKIE MENDEZ FACC, ALI FACP CCDS Ot 401.9 01/06/2015 COOKIE MENDEZ FACC, ALI FACP CCDS Ot 416.8 01/06/2015 COOKIE MENDEZ FACC, ALI FACP CCDS Ot 424.3 01/06/2015 COOKIE MENDEZ FACC, ALI FACP CCDS Ot 729.81 01/06/2015 COOKIE MENDEZ FACC, ALI FACP CCDS Ot 250.00 01/06/2015 COOKIE MENDEZ FACC, ALI FACP CCDS Ot 401.9 01/06/2015 COOKIE MENDEZ FACC, ALI FACP CCDS Ot 424.3 01/06/2015 COOKIE MENDEZ FACC, ALI FACP CCDS Ot 729.81 01/06/2015 VERITO MENDEZ, PAUL A Ot 596.51 01/06/2015 VERITO MENDEZ, PAUL A Ot 599.82 01/06/2015 VERITO MENDEZ, PAUL A Ot 788.30 01/06/2015 VERITO MENDEZ, PAUL A Ot V72.63 01/06/2015 VERITO MENDEZ, PAUL A Ot V74.8 01/20/2015 KALEN WHITTEN NETWORK ADMINISTRATOR Ot 491.22 01/20/2015 KALEN WHITTEN NETWORK ADMINISTRATOR Ot 493.90 01/20/2015 KALEN WHITTEN NETWORK ADMINISTRATOR Ot 786.09 04/09/2015 KALEN WHITTEN NETWORK ADMINISTRATOR Ot 491.22 OBSTRUCTIVE CHRONIC BRONCHITIS WITH ACUT 04/09/2015 KALEN WHITTEN NETWORK ADMINISTRATOR Ot 493.90 ASTHMA, UNSPECIFIED 04/09/2015 KALEN WHITTEN NETWORK ADMINISTRATOR Ot 786.09 RESPIRATORY ABNORM NEC 06/10/2015 KALEN WHITTEN NETWORK ADMINISTRATOR Ot 491.22 06/10/2015 KALEN WHITTEN NETWORK ADMINISTRATOR Ot 493.90 06/10/2015 KALEN WHITTEN NETWORK ADMINISTRATOR Ot 786.09 06/17/2015 KALEN WHITTEN NETWORK ADMINISTRATOR Ot J44.0 07/09/2015 KALEN WHITTEN NETWORK ADMINISTRATOR Ot J44.0 CHRONIC OBSTRUCTIVE PULMON DISEASE W ACU 02/27/2016 BAIMA, KUN L BIOLOGICAL INSPECTOR Ot E78.4 OTHER HYPERLIPIDEMIA 02/27/2016 BAIMA, KUN L BIOLOGICAL INSPECTOR Ot F17.200 NICOTINE DEPENDENCE, UNSPECIFIED, UNCOMP 02/27/2016 BAIMA, KUN L BIOLOGICAL INSPECTOR Ot I10 ESSENTIAL (PRIMARY) HYPERTENSION 02/27/2016 BAIMA, KUN L BIOLOGICAL INSPECTOR Ot I37.0 NONRHEUMATIC PULMONARY VALVE STENOSIS 03/24/2016 KALEN WHITTEN APRN Ot J18.9 PNEUMONIA, UNSPECIFIED ORGANISM 03/30/2016 BAIMA, KUN L BIOLOGICAL INSPECTOR Ot E78.4 OTHER HYPERLIPIDEMIA 03/30/2016 BAIMA, KUN L BIOLOGICAL INSPECTOR Ot F17.200 NICOTINE DEPENDENCE, UNSPECIFIED, UNCOMP 03/30/2016 BAIMA, KUN L BIOLOGICAL INSPECTOR Ot I10 ESSENTIAL (PRIMARY) HYPERTENSION 03/30/2016 BAIMA, KUN L BIOLOGICAL INSPECTOR Ot I37.0 NONRHEUMATIC PULMONARY VALVE STENOSIS 04/02/2016 KALEN WHITTEN NETWORK ADMINISTRATOR Ot F17.200 NICOTINE DEPENDENCE, UNSPECIFIED, UNCOMP 04/02/2016 KALEN WHITTEN NETWORK ADMINISTRATOR Ot J18.9 PNEUMONIA, UNSPECIFIED ORGANISM 04/02/2016 KALEN WHITTEN NETWORK ADMINISTRATOR Ot J44.1 CHRONIC OBSTRUCTIVE PULMONARY DISEASE W 04/02/2016 KALEN WHITTEN NETWORK ADMINISTRATOR Ot J45.909 UNSPECIFIED ASTHMA, UNCOMPLICATED 04/02/2016 KALEN WHITTEN NETWORK ADMINISTRATOR Ot R06.09 OTHER FORMS OF DYSPNEA 04/02/2016 KALEN WHITTEN NETWORK ADMINISTRATOR Ot J18.9 PNEUMONIA, UNSPECIFIED ORGANISM 07/08/2016 JOSE MANUEL HANSON 354.0 CARPAL TUNNEL SYNDROME 07/08/2016 JOSE MANUEL HANSON 354.2 LESION OF ULNAR NERVE 07/08/2016 JOSE MANUEL HANSON 727.05 OTHER TENOSYNOVITIS OR HAND AND WRIST 07/08/2016 JOSE MANUEL HANSON G56.02 CARPAL TUNNEL SYNDROME, LEFT UPPER LIMB 07/08/2016 JOSE MANUEL HANSON G56.22 LESION OF ULNAR NERVE, LEFT UPPER LIMB 07/08/2016 JOSE MANUEL HANSON M65.9 SYNOVITIS AND TENOSYNOVITIS, UNSPECIFIED 07/26/2016 Mark Payne 465.8 ACUTE UPPER RESPIRATORY INFECTIONS OF OTHER MULTIPLE SITES 07/26/2016 Mark Payne 478.9 OTHER AND UNSPECIFIED DISEASES OF UPPER RESPIRATORY TRACT 07/26/2016 Mark Payne J06.9 ACUTE UPPER RESPIRATORY INFECTION, UNSPECIFIED 07/26/2016 Mark Payne J39.9 DISEASE OF UPPER RESPIRATORY TRACT, UNSPECIFIED 07/26/2016 Mark Payne 244.9 UNSPECIFIED HYPOTHYROIDISM 07/26/2016 Mark Payne 250.00 DIABETES MELLITUS WITHOUT MENTION OF COMPLICATION, TYPE II OR UNSPECIFIED TYPE, NOT STATED UNCONTROLLED 07/26/2016 Mark Payne 401.0 MALIGNANT ESSENTIAL HYPERTENSION 07/26/2016 Mark Payne 491.20 07/26/2016 Mark Payne E03.9 HYPOTHYROIDISM, UNSPECIFIED 07/26/2016 Mark Payne E11.9 TYPE 2 DIABETES MELLITUS WITHOUT COMPLICATIONS 07/26/2016 Mark Payne I10 ESSENTIAL (PRIMARY) HYPERTENSION 07/26/2016 Mark Payne J44.9 CHRONIC OBSTRUCTIVE PULMONARY DISEASE, UNSPECIFIED 09/30/2016 JOSE MANUEL HANSON 354.2 LESION OF ULNAR NERVE 09/30/2016 JOSE MANUEL HANSON G56.22 LESION OF ULNAR NERVE, LEFT UPPER LIMB 09/30/2016 JOSE MANUEL HANSON 354.2 LESION OF ULNAR NERVE 09/30/2016 JOSE MANUEL HANSON G56.22 LESION OF ULNAR NERVE, LEFT UPPER LIMB 02/22/2017 Radha Ngo 285.9 ANEMIA, UNSPECIFIED 02/22/2017 Radha Ngo 455.9 RESIDUAL HEMORRHOIDAL SKIN TAGS 02/22/2017 Radha Ngo 552.3 DIAPHRAGMATIC HERNIA WITH OBSTRUCTION 02/22/2017 Radha Ngo D64.9 ANEMIA, UNSPECIFIED 02/22/2017 Radha Ngo K44.9 DIAPHRAGMATIC HERNIA WITHOUT OBSTRUCTION OR GANGRENE 02/22/2017 Radha Ngo K64.4 RESIDUAL HEMORRHOIDAL SKIN TAGS 03/03/2017 Jake Jeison Urbina 250.00 DIABETES MELLITUS WITHOUT MENTION OF COMPLICATION, TYPE II OR UNSPECIFIED TYPE, NOT STATED UNCONTROLLED 03/03/2017 Jeison Joseph 401.9 UNSPECIFIED ESSENTIAL HYPERTENSION 03/03/2017 Jeison Joseph 496 CHRONIC AIRWAY OBSTRUCTION, NOT ELSEWHERE CLASSIFIED 03/03/2017 Jeison Joseph 845.00 03/03/2017 Jeison Joseph 848.8 OTHER SPECIFIED SITES OF SPRAINS AND STRAINS 03/03/2017 Jeison Joseph 916.0 03/03/2017 Jeison Joseph 924.10 03/03/2017 Jake Jeison Ciara E11.9 TYPE 2 DIABETES MELLITUS WITHOUT COMPLICATIONS 03/03/2017 Jeison Joseph I10 ESSENTIAL (PRIMARY) HYPERTENSION 03/03/2017 Jeison Joseph J44.9 CHRONIC OBSTRUCTIVE PULMONARY DISEASE, UNSPECIFIED 03/03/2017 Jeison Joseph S29.012A STRAIN OF MUSCLE AND TENDON OF BACK WALL OF THORAX, INIT 03/03/2017 Jeison Joseph S80.12XA CONTUSION OF LEFT LOWER LEG, INITIAL ENCOUNTER 03/03/2017 Jeison Joseph S80.812A ABRASION, LEFT LOWER LEG, INITIAL ENCOUNTER 03/03/2017 Jake Jeison Kirby S93.402A SPRAIN OF UNSPECIFIED LIGAMENT OF LEFT ANKLE, INIT ENCNTR 04/19/2017 Ot 424.3 PULMONARY VALVE DISORDER 04/19/2017 Ot 786.09 RESPIRATORY ABNORM NEC 04/19/2017 COOKIE MENDEZ FACC, ALI FACP CCDS Ot 416.8 CHR PULMON HEART DIS NEC 04/19/2017 COOKIE MENDEZ FACC, ALI FACP CCDS Ot 786.09 RESPIRATORY ABNORM NEC 04/19/2017 BA CHAUDHARY MD Ot 618.04 RECTOCELE 04/19/2017 BA CHAUDHARY MD Ot V72.63 PRE-PROCEDURAL LABORATORY EXAMINATION 04/19/2017 BA CHAUDHARY MD Ot V74.8 SCREEN-BACTERIAL DIS NEC 04/19/2017 BA CHAUDHARY MD Ot V76.12 OTH SCREEN MAMMO-MALIGN NEOPLASM OF CRISTEL 04/19/2017 COOKIE MENDEZ FACC, ALI FACP CCDS Ot 250.00 DIAB SAMEER WO COMPL, TYPE II OR UNSPEC TY 04/19/2017 COOKIE MENDEZ FACC, ALI FACP CCDS Ot 401.9 HYPERTENSION NOS 04/19/2017 COOKIE MD FACC, ALI FACP CCDS Ot 424.3 PULMONARY VALVE DISORDER 04/19/2017 COOKIE MD FACC, ALI FACP CCDS Ot 729.81 SWELLING OF LIMB 04/19/2017 COOKIE MD FACC, ALI FACP CCDS Ot 250.00 DIAB SAMEER WO COMPL, TYPE II OR UNSPEC TY 04/19/2017 COOKIE MD FACC, ALI FACP CCDS Ot 401.9 HYPERTENSION NOS 04/19/2017 COOKIE MD FACC, ALI FACP CCDS Ot 416.8 CHR PULMON HEART DIS NEC 04/19/2017 COOKIE MD FACC, ALI FACP CCDS Ot 424.3 PULMONARY VALVE DISORDER 04/19/2017 COKOIE FACC, ALI FACP CCDS Ot 729.81 SWELLING OF LIMB 04/19/2017 COOKIE MENDEZ FACC, ALI FACP CCDS Ot 250.00 DIAB SAMEER WO COMPL, TYPE II OR UNSPEC TY 04/19/2017 COOKIE MD FACC, ALI FACP CCDS Ot 401.9 HYPERTENSION NOS 04/19/2017 COOKIE MD FACC, ALI FACP CCDS Ot 424.3 PULMONARY VALVE DISORDER 04/19/2017 COOKIE FACC, ALI FACP CCDS Ot 729.81 SWELLING OF LIMB 04/19/2017 PAUL SELLERS MD Ot 596.51 HYPERTONICITY OF BLADDER 04/19/2017 PAUL SELLERS MD Ot 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 04/19/2017 PAUL SELLERS MD Ot 788.30 UNSPECIFIED URINARY INCONTINENCE 04/19/2017 PAUL SELLERS MD Ot V72.63 PRE-PROCEDURAL LABORATORY EXAMINATION 04/19/2017 PAUL SELLERS MD Ot V74.8 SCREEN-BACTERIAL DIS NEC 04/19/2017 KALEN WHITTEN APRN Ot 491.22 OBSTRUCTIVE CHRONIC BRONCHITIS WITH ACUT 04/19/2017 KALEN WHITTEN APRN Ot 493.90 ASTHMA, UNSPECIFIED 04/19/2017 KALEN WHITTEN APRN Ot 786.09 RESPIRATORY ABNORM NEC 04/19/2017 KALEN WHITTEN APRN Ot J44.0 CHRONIC OBSTRUCTIVE PULMON DISEASE W ACU 04/19/2017 KUN BUCKLEY BIOLOGICAL INSPECTOR Ot E78.4 OTHER HYPERLIPIDEMIA 04/19/2017 KUN BUCKLEY BIOLOGICAL INSPECTOR Ot F17.200 NICOTINE DEPENDENCE, UNSPECIFIED, UNCOMP 04/19/2017 KUN BUCKLEY BIOLOGICAL INSPECTOR Ot I10 ESSENTIAL (PRIMARY) HYPERTENSION 04/19/2017 KUN BUCKLEYP Ot I37.0 NONRHEUMATIC PULMONARY VALVE STENOSIS 04/19/2017 KALEN WHITTEN APRN Ot J44.0 CHRONIC OBSTRUCTIVE PULMON DISEASE W ACU 04/19/2017 [facility] [employer] DO Ot K44.9 DIAPHRAGMATIC HERNIA WITHOUT OBSTRUCTION 04/19/2017 [employer] [employer] DO Ot Z01.818 ENCOUNTER FOR OTHER PREPROCEDURAL EXAMIN 04/19/2017 [facility] [employer] DO Ot K82.8 OTHER SPECIFIED DISEASES OF GALLBLADDER 04/20/2017 RADHA [employer] DO Ot K44.9 DIAPHRAGMATIC HERNIA WITHOUT OBSTRUCTION 04/20/2017 [facility] [employer] DO Ot Z01.818 ENCOUNTER FOR OTHER PREPROCEDURAL EXAMIN 04/22/2017 KALEN WHITTEN APRN Ot J44.0 CHRONIC OBSTRUCTIVE PULMON DISEASE W ACU 04/22/2017 [facility] [employer] DO Ot E03.9 HYPOTHYROIDISM, UNSPECIFIED 04/22/2017 RADHA [employer] DO Ot E11.9 TYPE 2 DIABETES MELLITUS WITHOUT COMPLIC 04/22/2017 RADHA [employer] DO Ot E78.5 HYPERLIPIDEMIA, UNSPECIFIED 04/22/2017 [facility] [employer] DO Ot F17.210 NICOTINE DEPENDENCE, CIGARETTES, UNCOMPL 04/22/2017 RADHA [employer] DO Ot F41.9 ANXIETY DISORDER, UNSPECIFIED 04/22/2017 RADHA [employer] DO Ot G43.909 MIGRAINE, UNSP, NOT INTRACTABLE, WITHOUT 04/22/2017 RADHA NGO DO Ot I10 ESSENTIAL (PRIMARY) HYPERTENSION 04/22/2017 RADHA [employer] DO Ot J44.9 CHRONIC OBSTRUCTIVE PULMONARY DISEASE, U 04/22/2017 [facility] [employer] DO Ot K82.8 OTHER SPECIFIED DISEASES OF GALLBLADDER 04/22/2017 RADHA [employer] DO Ot M54.9 DORSALGIA, UNSPECIFIED 04/22/2017 ROSALIA DORADHA Ot Z79.899 OTHER DIRECTOR OF STRATEGIC COMMUNICATIONS (CURRENT) DRUG THERAPY 04/27/2017 ROSALIA DORADHA Ot E03.9 HYPOTHYROIDISM, UNSPECIFIED 04/27/2017 ROSALIA DORADHA Ot E11.9 TYPE 2 DIABETES MELLITUS WITHOUT COMPLIC 04/27/2017 ROSALIA DORHETTTIE Ot E78.5 HYPERLIPIDEMIA, UNSPECIFIED 04/27/2017 ROSALIA DORADHA Ot F17.210 NICOTINE DEPENDENCE, CIGARETTES, UNCOMPL 04/27/2017 ROSALIA DORADHA Ot F41.9 ANXIETY DISORDER, UNSPECIFIED 04/27/2017 ROSALIA DORHETTTIE Ot G43.909 MIGRAINE, UNSP, NOT INTRACTABLE, WITHOUT 04/27/2017 ROSALIA DORADHA Ot I10 ESSENTIAL (PRIMARY) HYPERTENSION 04/27/2017 RADHA [employer] DO Ot J44.9 CHRONIC OBSTRUCTIVE PULMONARY DISEASE, U 04/27/2017 RADHA NGO DO Ot K82.8 OTHER SPECIFIED DISEASES OF GALLBLADDER 04/27/2017 ROSALIA DORADHA Ot M54.9 DORSALGIA, UNSPECIFIED 04/27/2017 ROSALIA DORADHA Ot Z79.899 OTHER DIRECTOR OF STRATEGIC COMMUNICATIONS (CURRENT) DRUG THERAPY 04/29/2017 RADHA NGO DO Ot K82.8 OTHER SPECIFIED DISEASES OF GALLBLADDER 05/03/2017 ROSALIA DORADHA Ot E03.9 HYPOTHYROIDISM, UNSPECIFIED 05/03/2017 ROSALIA DORADHA Ot E11.9 TYPE 2 DIABETES MELLITUS WITHOUT COMPLIC 05/03/2017 ROSALIA DORADHA Ot E78.5 HYPERLIPIDEMIA, UNSPECIFIED 05/03/2017 ROSALIA DORADHA Ot F17.210 NICOTINE DEPENDENCE, CIGARETTES, UNCOMPL 05/03/2017 ROSALIA DORADHA Ot F41.9 ANXIETY DISORDER, UNSPECIFIED 05/03/2017 ROSALIA DORADHA Ot G43.909 MIGRAINE, UNSP, NOT INTRACTABLE, WITHOUT 05/03/2017 ROSALIA DORHETTTIE Ot I10 ESSENTIAL (PRIMARY) HYPERTENSION 05/03/2017 RADHA NGO DO Ot J44.9 CHRONIC OBSTRUCTIVE PULMONARY DISEASE, U 05/03/2017 RADHA NGO DO Ot K82.8 OTHER SPECIFIED DISEASES OF GALLBLADDER 05/03/2017 RADHA NGO DO Ot M54.9 DORSALGIA, UNSPECIFIED 05/03/2017 RADHA [employer] DO Ot Z79.899 OTHER DIRECTOR OF STRATEGIC COMMUNICATIONS (CURRENT) DRUG THERAPY 09/01/2017 Adam, Anna W 486 PNEUMONIA, ORGANISM UNSPECIFIED 09/01/2017 Adam, Anna W J18.9 PNEUMONIA, UNSPECIFIED ORGANISM 09/01/2017 Adam, Anna W 486 PNEUMONIA, ORGANISM UNSPECIFIED 09/01/2017 Adam, Anna W J18.9 PNEUMONIA, UNSPECIFIED ORGANISM 09/05/2017 Adam, Anna W 244.9 09/05/2017 Adam, Anna W 250.00 09/05/2017 Adam, Anna W 285.9 ANEMIA, UNSPECIFIED 09/05/2017 Adam, Anna W 338.2 CHRONIC PAIN 09/05/2017 [facility], Anna W 401.0 09/05/2017 Adam, Anna W 482.1 09/05/2017 Adam, Anna W 486 PNEUMONIA, ORGANISM UNSPECIFIED 09/05/2017 Adam, Anna A 491.22 09/05/2017 Adam, Anna W 530.81 09/05/2017 Adam, Anna W 724.5 BACKACHE, UNSPECIFIED 09/05/2017 Adam, Anna W 787.91 09/05/2017 Adam, Anna W D64.9 ANEMIA, UNSPECIFIED 09/05/2017 Adam, Anna W E03.9 HYPOTHYROIDISM, UNSPECIFIED 09/05/2017 Adam, Anna W E11.9 TYPE 2 DIABETES MELLITUS WITHOUT COMPLICATIONS 09/05/2017 Adam, Anna W G89.29 OTHER CHRONIC PAIN 09/05/2017 Adam, Anna W I10 ESSENTIAL (PRIMARY) HYPERTENSION 09/05/2017 Adam, Anna W J15.1 PNEUMONIA DUE TO PSEUDOMONAS 09/05/2017 Adam, Anna W J18.9 PNEUMONIA, UNSPECIFIED ORGANISM 09/05/2017 Adam, Anna A J44.0 09/05/2017 Adam, Anna W K21.9 GASTRO-ESOPHAGEAL REFLUX DISEASE WITHOUT ESOPHAGITIS 09/05/2017 Adam, Anna W M54.9 DORSALGIA, UNSPECIFIED 09/05/2017 Michelle Medinaa W R19.7 DIARRHEA, UNSPECIFIED 10/15/2017 Aleena Marinelli A 719.41 PAIN IN JOINT INVOLVING SHOULDER REGION 10/15/2017 Yves Aleena A M25.511 PAIN IN RIGHT SHOULDER 10/19/2017 Michelle Medinaa W 719.41 PAIN IN JOINT INVOLVING SHOULDER REGION 10/19/2017 Adam, Anna Urbina M25.511 PAIN IN RIGHT SHOULDER 10/19/2017 Michelle Medinakirby Urbina 719.41 PAIN IN JOINT INVOLVING SHOULDER REGION 10/19/2017 Michelle Medinakirby Urbina M25.511 PAIN IN RIGHT SHOULDER 10/27/2017 JOSE MANUEL HANSON 726.2 OTHER AFFECTIONS OF SHOULDER REGION, NOT ELSEWHERE CLASSIFIED 10/27/2017 JOSE MANUEL HANSON 727.05 OTHER TENOSYNOVITIS OR HAND AND WRIST 10/27/2017 JOSE MANUEL HANSON 840.7 SUPERIOR GLENOID LABRUM LESION 10/27/2017 JOSE MANUEL HANSON 840.8 SPRAIN OF OTHER SPECIFIED SITES OF SHOULDER AND UPPER ARM 10/27/2017 JOSE MANUEL HANSON M65.9 SYNOVITIS AND TENOSYNOVITIS, UNSPECIFIED 10/27/2017 JOSE MANUEL HANSON M75.41 IMPINGEMENT SYNDROME OF RIGHT SHOULDER 10/27/2017 JOSE MANUEL HANSON S43.431A SUPERIOR GLENOID LABRUM LESION OF RIGHT SHOULDER, INIT 10/27/2017 JOSE MANUEL HANSON S46.011A STRAIN OF MUSC/TEND THE ROTATOR CUFF OF RIGHT SHOULDER, INIT 01/04/2018 COOKIE MENDEZ FACC, ALI FACP CCDS Ot E11.9 TYPE 2 DIABETES MELLITUS WITHOUT COMPLIC 01/04/2018 COOKIE MENDEZ FACC, ALI FACP CCDS Ot E78.4 OTHER HYPERLIPIDEMIA 01/04/2018 COOKIE MENDEZ FACC, ALI FACP CCDS Ot F17.200 NICOTINE DEPENDENCE, UNSPECIFIED, UNCOMP 01/04/2018 COOKIE MENDEZ FACC, ALI FACP CCDS Ot I10 ESSENTIAL (PRIMARY) HYPERTENSION 01/04/2018 COOKIE MENDEZ FACC, ALI FACP CCDS Ot I37.0 NONRHEUMATIC PULMONARY VALVE STENOSIS 01/04/2018 COOKIE MENDEZ FACC, ALI FACP CCDS Ot R09.02 HYPOXEMIA 01/04/2018 COOKIE MENDEZ FACC, ALI FACP CCDS Ot E11.9 TYPE 2 DIABETES MELLITUS WITHOUT COMPLIC 01/04/2018 COOKIE MENDEZ FAC, ALI FACP CCDS Ot E78.4 OTHER HYPERLIPIDEMIA 01/04/2018 COOKIE MENDEZ FACC, ALI FACP CCDS Ot F17.200 NICOTINE DEPENDENCE, UNSPECIFIED, UNCOMP 01/04/2018 COOKIE MENDEZ FACC, ALI FACP CCDS Ot I10 ESSENTIAL (PRIMARY) HYPERTENSION 01/04/2018 COOKIE MENDEZ FAC, ALI FACP CCDS Ot I37.0 NONRHEUMATIC PULMONARY VALVE STENOSIS 01/04/2018 COOKIE MENDEZ [facility], ALI FACP CCDS Ot R09.02 HYPOXEMIA 01/13/2018 COOKIE MENDEZ FAC, ALI FACP CCDS Ot E11.9 TYPE 2 DIABETES MELLITUS WITHOUT COMPLIC 01/13/2018 COOKIE MENDEZ FAC, ALI FACP CCDS Ot E78.4 OTHER HYPERLIPIDEMIA 01/13/2018 COOKIE MENDEZ FAC, ALI FACP CCDS Ot F17.200 NICOTINE DEPENDENCE, UNSPECIFIED, UNCOMP 01/13/2018 COOKIE MENDEZ [facility], ALI FACP CCDS Ot I10 ESSENTIAL (PRIMARY) HYPERTENSION 01/13/2018 COOKIE MENDEZ [facility], ALI FACP CCDS Ot I37.0 NONRHEUMATIC PULMONARY VALVE STENOSIS 01/13/2018 COOKIE MENDEZ [facility], ALI FACP CCDS Ot R09.02 HYPOXEMIA 01/16/2018 BAIMA, KUN L BIOLOGICAL INSPECTOR Ot E78.5 HYPERLIPIDEMIA, UNSPECIFIED 01/16/2018 BAIMA, KUN L BIOLOGICAL INSPECTOR Ot I10 ESSENTIAL (PRIMARY) HYPERTENSION 01/16/2018 BAIMA, KUN L BIOLOGICAL INSPECTOR Ot I37.0 NONRHEUMATIC PULMONARY VALVE STENOSIS 01/16/2018 BAIMA, KUN L BIOLOGICAL INSPECTOR Ot R06.09 OTHER FORMS OF DYSPNEA 01/20/2018 BAIMA, KUN L BIOLOGICAL INSPECTOR Ot E78.5 HYPERLIPIDEMIA, UNSPECIFIED 01/20/2018 BAIMA, KUN L BIOLOGICAL INSPECTOR Ot I10 ESSENTIAL (PRIMARY) HYPERTENSION 01/20/2018 BAIMA, KUN L BIOLOGICAL INSPECTOR Ot I37.0 NONRHEUMATIC PULMONARY VALVE STENOSIS 01/20/2018 BAIMA, KUN L BIOLOGICAL INSPECTOR Ot R06.09 OTHER FORMS OF DYSPNEA 01/25/2018 BAIMA, KUN L BIOLOGICAL INSPECTOR Ot E78.5 HYPERLIPIDEMIA, UNSPECIFIED 01/25/2018 BAIMAKUN L BIOLOGICAL INSPECTOR Ot I10 ESSENTIAL (PRIMARY) HYPERTENSION 01/25/2018 BAIMA, KUN L BIOLOGICAL INSPECTOR Ot I37.0 NONRHEUMATIC PULMONARY VALVE STENOSIS 01/25/2018 BAIMA, KUN L BIOLOGICAL INSPECTOR Ot R06.09 OTHER FORMS OF DYSPNEA 02/07/2018 KUN BUCKLEY BIOLOGICAL INSPECTOR Ot E78.5 HYPERLIPIDEMIA, UNSPECIFIED 02/07/2018 BAIMA, KUN L BIOLOGICAL INSPECTOR Ot I10 ESSENTIAL (PRIMARY) HYPERTENSION 02/07/2018 BAIMA, KUN L BIOLOGICAL INSPECTOR Ot I37.0 NONRHEUMATIC PULMONARY VALVE STENOSIS 02/07/2018 BAIMA, KUN L BIOLOGICAL INSPECTOR Ot R06.09 OTHER FORMS OF DYSPNEA 04/27/2018 Dilshad Chou 719.41 PAIN IN JOINT INVOLVING SHOULDER REGION 04/27/2018 Dilshad Chou 922.31 CONTUSION OF BACK 04/27/2018 Dilshad Chou M25.511 PAIN IN RIGHT SHOULDER 04/27/2018 Dilshad Chou S30.0XXA CONTUSION OF LOWER BACK AND PELVIS, INITIAL ENCOUNTER 09/06/2018 BA CHAUDHARY MD Ot 618.04 RECTOCELE 09/06/2018 BA CHAUDHARY MD Ot V72.63 PRE-PROCEDURAL LABORATORY EXAMINATION 09/06/2018 BA CHAUDHARY MD Ot V74.8 SCREEN-BACTERIAL DIS NEC 09/06/2018 BA CHAUDHARY MD Ot V76.12 OTH SCREEN MAMMO-MALIGN NEOPLASM OF CRISTEL 09/06/2018 COOKIE MENDEZ FACC, ALI FACP CCDS Ot 250.00 DIAB SAMEER WO COMPL, TYPE II OR UNSPEC TY 09/06/2018 COOKIE MENDEZ FACC, ALI FACP CCDS Ot 401.9 HYPERTENSION NOS 09/06/2018 COOKIE MENDEZ FACC, ALI FACP CCDS Ot 424.3 PULMONARY VALVE DISORDER 09/06/2018 COOKIE MENDEZ FACC, ALI FACP CCDS Ot 729.81 SWELLING OF LIMB 09/06/2018 COOKIE MENDEZ FACC, ALI FACP CCDS Ot 250.00 DIAB SAMEER WO COMPL, TYPE II OR UNSPEC TY 09/06/2018 COOKIE MENDEZ FACC, ALI FACP CCDS Ot 401.9 HYPERTENSION NOS 09/06/2018 COOKIE MENDEZ FACC, ALI FACP CCDS Ot 416.8 CHR PULMON HEART DIS NEC 09/06/2018 COOKIE MENDEZ FACC, ALI FACP CCDS Ot 424.3 PULMONARY VALVE DISORDER 09/06/2018 COOKIE MENDEZ FACC, ALI FACP CCDS Ot 729.81 SWELLING OF LIMB 09/06/2018 COOKIE MENDEZ FACC, ALI FACP CCDS Ot 250.00 DIAB SAMEER WO COMPL, TYPE II OR UNSPEC TY 09/06/2018 COOKIE MENDEZ FACC, ALI FACP CCDS Ot 401.9 HYPERTENSION NOS 09/06/2018 COOKIE MENDEZ FACC, ALI FACP CCDS Ot 424.3 PULMONARY VALVE DISORDER 09/06/2018 COOKIE MENDEZ FACC, ALI FACP CCDS Ot 729.81 SWELLING OF LIMB 09/06/2018 PAUL SELLERS MD Ot 596.51 HYPERTONICITY OF BLADDER 09/06/2018 PAUL SELLERS MD Ot 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 09/06/2018 PAUL SELLERS MD Ot 788.30 UNSPECIFIED URINARY INCONTINENCE 09/06/2018 PAUL SELLERS MD Ot V72.63 PRE-PROCEDURAL LABORATORY EXAMINATION 09/06/2018 PAUL SELLERS MD Ot V74.8 SCREEN-BACTERIAL DIS NEC 09/06/2018 KALEN WHITTEN APRN Ot 491.22 OBSTRUCTIVE CHRONIC BRONCHITIS WITH ACUT 09/06/2018 KALEN WHITTEN APRN Ot 493.90 ASTHMA, UNSPECIFIED 09/06/2018 KALEN WHITTEN APRN Ot 786.09 RESPIRATORY ABNORM NEC 09/06/2018 KALEN WHITTEN APRN Ot J44.0 CHRONIC OBSTRUCTIVE PULMON DISEASE W ACU 09/06/2018 KUN BUCKLEY BIOLOGICAL INSPECTOR Ot E78.4 OTHER HYPERLIPIDEMIA 09/06/2018 KUN BUCKLEY BIOLOGICAL INSPECTOR Ot F17.200 NICOTINE DEPENDENCE, UNSPECIFIED, UNCOMP 09/06/2018 KUN BUCKLEY BIOLOGICAL INSPECTOR Ot I10 ESSENTIAL (PRIMARY) HYPERTENSION 09/06/2018 KUN BUCKLEY BIOLOGICAL INSPECTOR Ot I37.0 NONRHEUMATIC PULMONARY VALVE STENOSIS 09/06/2018 RADHA NGO DO Ot K82.8 OTHER SPECIFIED DISEASES OF GALLBLADDER 09/06/2018 COOKIE MENDEZ FACC, RANCHO FACP CCDS Ot E11.9 TYPE 2 DIABETES MELLITUS WITHOUT COMPLIC 09/06/2018 COOKIE MENDEZ FACC, ALI FACP CCDS Ot E78.4 OTHER HYPERLIPIDEMIA 09/06/2018 COOKIE MENDEZ FACC, ALI FACP CCDS Ot F17.200 NICOTINE DEPENDENCE, UNSPECIFIED, UNCOMP 09/06/2018 COOKIE ELAMC, ALI FACP CCDS Ot I10 ESSENTIAL (PRIMARY) HYPERTENSION 09/06/2018 COOKIE MENDEZ FACC, ALI FACP CCDS Ot I37.0 NONRHEUMATIC PULMONARY VALVE STENOSIS 09/06/2018 COOKIE MENDEZ FACC, ALI FACP CCDS Ot R09.02 HYPOXEMIA 09/06/2018 BAIMA, KUN L BIOLOGICAL INSPECTOR Ot E78.5 HYPERLIPIDEMIA, UNSPECIFIED 09/06/2018 BAIMA, KUN L BIOLOGICAL INSPECTOR Ot I10 ESSENTIAL (PRIMARY) HYPERTENSION 09/06/2018 BAIMA, KUN L BIOLOGICAL INSPECTOR Ot I37.0 NONRHEUMATIC PULMONARY VALVE STENOSIS 09/06/2018 BAIMA, KUN L BIOLOGICAL INSPECTOR Ot R06.09 OTHER FORMS OF DYSPNEA 09/06/2018 BAIMA, KUN L BIOLOGICAL INSPECTOR Ot E78.5 HYPERLIPIDEMIA, UNSPECIFIED 09/06/2018 BAIMA, KUN L BIOLOGICAL INSPECTOR Ot I10 ESSENTIAL (PRIMARY) HYPERTENSION 09/06/2018 BAIMA, KUN L BIOLOGICAL INSPECTOR Ot I37.0 NONRHEUMATIC PULMONARY VALVE STENOSIS 09/06/2018 BAIMA, KUN L BIOLOGICAL INSPECTOR Ot R06.09 OTHER FORMS OF DYSPNEA 09/19/2018 Mark Payne W 724.3 SCIATICA 09/19/2018 Mark Payne W M54.31 SCIATICA, RIGHT SIDE 09/20/2018 BA CHAUDHARY MD Ot 618.04 RECTOCELE 09/20/2018 BA CHAUDHARY MD Ot V72.63 PRE-PROCEDURAL LABORATORY EXAMINATION 09/20/2018 BA CHAUDHARY MD Ot V74.8 SCREEN-BACTERIAL DIS NEC 09/20/2018 BA CHAUDHARY MD Ot V76.12 OTH SCREEN MAMMO-MALIGN NEOPLASM OF CRISTEL 09/20/2018 COOKIE MENDEZ FACC, ALI FACP CCDS Ot 250.00 DIAB SAMEER WO COMPL, TYPE II OR UNSPEC TY 09/20/2018 COOKIE MENDEZ FACC, ALI FACP CCDS Ot 401.9 HYPERTENSION NOS 09/20/2018 COOKIE MENDEZ FACC, ALI FACP CCDS Ot 424.3 PULMONARY VALVE DISORDER 09/20/2018 COOKIE MD FACC, ALI FACP CCDS Ot 729.81 SWELLING OF LIMB 09/20/2018 COOKIE MENDEZ FACC, ALI FACP CCDS Ot 250.00 DIAB SAMEER WO COMPL, TYPE II OR UNSPEC TY 09/20/2018 COOKIE MD FACC, ALI FACP CCDS Ot 401.9 HYPERTENSION NOS 09/20/2018 COOKIE MENDEZ FACC, ALI FACP CCDS Ot 416.8 CHR PULMON HEART DIS NEC 09/20/2018 COOKIE MD FACC, ALI FACP CCDS Ot 424.3 PULMONARY VALVE DISORDER 09/20/2018 COOKIE MD FACC, ALI FACP CCDS Ot 729.81 SWELLING OF LIMB 09/20/2018 COOKIE MENDEZ FACC, ALI FACP CCDS Ot 250.00 DIAB SAMEER WO COMPL, TYPE II OR UNSPEC TY 09/20/2018 COOKIE MENDEZ FACC, ALI FACP CCDS Ot 401.9 HYPERTENSION NOS 09/20/2018 COOKIE MENDEZ FACC, ALI FACP CCDS Ot 424.3 PULMONARY VALVE DISORDER 09/20/2018 COOKIE MENDEZ FACC, ALI FACP CCDS Ot 729.81 SWELLING OF LIMB 09/20/2018 PAUL SELLERS MD Ot 596.51 HYPERTONICITY OF BLADDER 09/20/2018 PAUL SELLERS MD Ot 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 09/20/2018 PAUL SELLERS MD Ot 788.30 UNSPECIFIED URINARY INCONTINENCE 09/20/2018 PAUL SELLERS MD Ot V72.63 PRE-PROCEDURAL LABORATORY EXAMINATION 09/20/2018 PAUL SELLERS MD Ot V74.8 SCREEN-BACTERIAL DIS NEC 09/20/2018 KALEN WHITTEN APRN Ot 491.22 OBSTRUCTIVE CHRONIC BRONCHITIS WITH ACUT 09/20/2018 KALEN WHITTEN APRN Ot 493.90 ASTHMA, UNSPECIFIED 09/20/2018 KALEN WHITTEN APRN Ot 786.09 RESPIRATORY ABNORM NEC 09/20/2018 KALEN WHITTEN APRN Ot J44.0 CHRONIC OBSTRUCTIVE PULMON DISEASE W ACU 09/20/2018 KUN BUCKLEY Ot E78.4 OTHER HYPERLIPIDEMIA 09/20/2018 BAIMA, KUN L BIOLOGICAL INSPECTOR Ot F17.200 NICOTINE DEPENDENCE, UNSPECIFIED, UNCOMP 09/20/2018 BAIMA, KUN L BIOLOGICAL INSPECTOR Ot I10 ESSENTIAL (PRIMARY) HYPERTENSION 09/20/2018 BAIMA, KUN L BIOLOGICAL INSPECTOR Ot I37.0 NONRHEUMATIC PULMONARY VALVE STENOSIS 09/20/2018 ROSALIARADHA CAMPA DO Ot K82.8 OTHER SPECIFIED DISEASES OF GALLBLADDER 09/20/2018 COOKIE MENDEZ FACC, ALI FACP CCDS Ot E11.9 TYPE 2 DIABETES MELLITUS WITHOUT COMPLIC 09/20/2018 COOKIE MENDEZ FACC, ALI FACP CCDS Ot E78.4 OTHER HYPERLIPIDEMIA 09/20/2018 COOKIE MENDEZ FACC, ALI FACP CCDS Ot F17.200 NICOTINE DEPENDENCE, UNSPECIFIED, UNCOMP 09/20/2018 COOKIE MENDEZ FACC, ALI FACP CCDS Ot I10 ESSENTIAL (PRIMARY) HYPERTENSION 09/20/2018 COOKIE MENDEZ FACC, ALI FACP CCDS Ot I37.0 NONRHEUMATIC PULMONARY VALVE STENOSIS 09/20/2018 COOKIE MENDEZ FACC, ALI FACP CCDS Ot R09.02 HYPOXEMIA 09/20/2018 BAIMA, KUN L BIOLOGICAL INSPECTOR Ot E78.5 HYPERLIPIDEMIA, UNSPECIFIED 09/20/2018 BAIMA, KUN L BIOLOGICAL INSPECTOR Ot I10 ESSENTIAL (PRIMARY) HYPERTENSION 09/20/2018 BAIMA, KUN L BIOLOGICAL INSPECTOR Ot I37.0 NONRHEUMATIC PULMONARY VALVE STENOSIS 09/20/2018 BAIMA, KUN L BIOLOGICAL INSPECTOR Ot R06.09 OTHER FORMS OF DYSPNEA 09/20/2018 BAIMA, KUN L BIOLOGICAL INSPECTOR Ot E78.5 HYPERLIPIDEMIA, UNSPECIFIED 09/20/2018 BAIMA, KUN L BIOLOGICAL INSPECTOR Ot I10 ESSENTIAL (PRIMARY) HYPERTENSION 09/20/2018 BAIMA, KUN L BIOLOGICAL INSPECTOR Ot I37.0 NONRHEUMATIC PULMONARY VALVE STENOSIS 09/20/2018 BAIMA, KUN L BIOLOGICAL INSPECTOR Ot R06.09 OTHER FORMS OF DYSPNEA 09/20/2018 BA CHAUDHARY MD Ot 618.04 RECTOCELE 09/20/2018 BA CHAUDHARY MD Ot V72.63 PRE-PROCEDURAL LABORATORY EXAMINATION 09/20/2018 BA CHAUDHARY MD Ot V74.8 SCREEN-BACTERIAL DIS NEC 09/20/2018 BA CHAUDHARY MD Ot V76.12 OT SCREEN MAMMO-MALIGN NEOPLASM OF CRISTEL 09/20/2018 COOKIE MD FACC, ALI FACP CCDS Ot 250.00 DIAB SAMEER WO COMPL, TYPE II OR UNSPEC TY 09/20/2018 COOKIE FACC, ALI FACP CCDS Ot 401.9 HYPERTENSION NOS 09/20/2018 COOKIE FACC, ALI FACP CCDS Ot 424.3 PULMONARY VALVE DISORDER 09/20/2018 COOKIE FACC, ALI FACP CCDS Ot 729.81 SWELLING OF LIMB 09/20/2018 COOKIE MD FACC, ALI FACP CCDS Ot 250.00 DIAB SAMEER WO COMPL, TYPE II OR UNSPEC TY 09/20/2018 COOKIE FACC, ALI FACP CCDS Ot 401.9 HYPERTENSION NOS 09/20/2018 COOKIE MD FACC, ALI FACP CCDS Ot 416.8 CHR PULMON HEART DIS NEC 09/20/2018 COOKIE MD FACC, ALI FACP CCDS Ot 424.3 PULMONARY VALVE DISORDER 09/20/2018 COOKIE MD FACC, ALI FACP CCDS Ot 729.81 SWELLING OF LIMB 09/20/2018 COOKIE MENDEZ FACC, ALI FACP CCDS Ot 250.00 DIAB SAMEER WO COMPL, TYPE II OR UNSPEC TY 09/20/2018 COOKIE MD FACC, ALI FACP CCDS Ot 401.9 HYPERTENSION NOS 09/20/2018 COOKIE MENDEZ FACC, ALI FACP CCDS Ot 424.3 PULMONARY VALVE DISORDER 09/20/2018 COOKIE MD FACC, ALI FACP CCDS Ot 729.81 SWELLING OF LIMB 09/20/2018 PAUL SELLERS MD Ot 596.51 HYPERTONICITY OF BLADDER 09/20/2018 PAUL SELLERS MD Ot 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 09/20/2018 PAUL SELLERS MD Ot 788.30 UNSPECIFIED URINARY INCONTINENCE 09/20/2018 PAUL SELLERS MD Ot V72.63 PRE-PROCEDURAL LABORATORY EXAMINATION 09/20/2018 PAUL SELLERS MD Ot V74.8 SCREEN-BACTERIAL DIS NEC 09/20/2018 KALEN WHITTEN APRN Ot 491.22 OBSTRUCTIVE CHRONIC BRONCHITIS WITH ACUT 09/20/2018 KALEN WHITTEN APRN Ot 493.90 ASTHMA, UNSPECIFIED 09/20/2018 KALEN WHITTEN APRN Ot 786.09 RESPIRATORY ABNORM NEC 09/20/2018 KALEN WHITTEN APRN Ot J44.0 CHRONIC OBSTRUCTIVE PULMON DISEASE W ACU 09/20/2018 BAIMA, KUN L BIOLOGICAL INSPECTOR Ot E78.4 OTHER HYPERLIPIDEMIA 09/20/2018 BAIMA, KUN L BIOLOGICAL INSPECTOR Ot F17.200 NICOTINE DEPENDENCE, UNSPECIFIED, UNCOMP 09/20/2018 BAIMA, KUN L BIOLOGICAL INSPECTOR Ot I10 ESSENTIAL (PRIMARY) HYPERTENSION 09/20/2018 BAIMA, KUN L BIOLOGICAL INSPECTOR Ot I37.0 NONRHEUMATIC PULMONARY VALVE STENOSIS 09/20/2018 RADHA NGO DO Ot K82.8 OTHER SPECIFIED DISEASES OF GALLBLADDER 09/20/2018 COOKIE MENDEZ FACC, ALI FACP CCDS Ot E11.9 TYPE 2 DIABETES MELLITUS WITHOUT COMPLIC 09/20/2018 COOKIE MENDEZ FACC, ALI FACP CCDS Ot E78.4 OTHER HYPERLIPIDEMIA 09/20/2018 COOKIE MENDEZ FACC, ALI FACP CCDS Ot F17.200 NICOTINE DEPENDENCE, UNSPECIFIED, UNCOMP 09/20/2018 COOKIE MENDEZ FACC, ALI FACP CCDS Ot I10 ESSENTIAL (PRIMARY) HYPERTENSION 09/20/2018 COOKIE MENDEZ FACC, ALI FACP CCDS Ot I37.0 NONRHEUMATIC PULMONARY VALVE STENOSIS 09/20/2018 COOKIE MENDEZ FACC, ALI FACP CCDS Ot R09.02 HYPOXEMIA 09/20/2018 BAIMA, KUN L BIOLOGICAL INSPECTOR Ot E78.5 HYPERLIPIDEMIA, UNSPECIFIED 09/20/2018 BAIMA, KUN L BIOLOGICAL INSPECTOR Ot I10 ESSENTIAL (PRIMARY) HYPERTENSION 09/20/2018 BAIMA, KUN L BIOLOGICAL INSPECTOR Ot I37.0 NONRHEUMATIC PULMONARY VALVE STENOSIS 09/20/2018 BAIMA, KUN L BIOLOGICAL INSPECTOR Ot R06.09 OTHER FORMS OF DYSPNEA 09/20/2018 BAIMA, KUN L BIOLOGICAL INSPECTOR Ot E78.5 HYPERLIPIDEMIA, UNSPECIFIED 09/20/2018 BAIMA, KUN L BIOLOGICAL INSPECTOR Ot I10 ESSENTIAL (PRIMARY) HYPERTENSION 09/20/2018 BAIMA, KUN L BIOLOGICAL INSPECTOR Ot I37.0 NONRHEUMATIC PULMONARY VALVE STENOSIS 09/20/2018 BAIMA, KUN L BIOLOGICAL INSPECTOR Ot R06.09 OTHER FORMS OF DYSPNEA 09/22/2018 MARIA DOLORES, KALEN E NETWORK ADMINISTRATOR Ot F17.210 NICOTINE DEPENDENCE, CIGARETTES, UNCOMPL 09/22/2018 KALEN WHITTEN NETWORK ADMINISTRATOR Ot J43.9 EMPHYSEMA, UNSPECIFIED 09/22/2018 KALEN WHITTEN NETWORK ADMINISTRATOR Ot J45.909 UNSPECIFIED ASTHMA, UNCOMPLICATED 09/22/2018 KALEN WHITTEN NETWORK ADMINISTRATOR Ot J84.10 PULMONARY FIBROSIS, UNSPECIFIED 09/22/2018 KALEN WHITTEN NETWORK ADMINISTRATOR Ot Z12.2 ENCNTR SCREEN FOR MALIGNANT NEOPLASM OF 09/26/2018 JET MENDEZ, BA Marie Ot 618.04 RECTOCELE 09/26/2018 JET MENDEZ, BA Marie Ot V72.63 PRE-PROCEDURAL LABORATORY EXAMINATION 09/26/2018 BA CHAUDHARY MD Ot V74.8 SCREEN-BACTERIAL DIS NEC 09/26/2018 BA CHAUDHARY MD Ot V76.12 OTH SCREEN MAMMO-MALIGN NEOPLASM OF CRISTEL 09/26/2018 COOKIE MENDEZ FACC, ALI FACP CCDS Ot 250.00 DIAB SAMEER WO COMPL, TYPE II OR UNSPEC TY 09/26/2018 COOKIE MENDEZ FACC, ALI FACP CCDS Ot 401.9 HYPERTENSION NOS 09/26/2018 COOKIE MENDEZ FACC, ALI FACP CCDS Ot 424.3 PULMONARY VALVE DISORDER 09/26/2018 COOKIE MENDEZ FACC, ALI FACP CCDS Ot 729.81 SWELLING OF LIMB 09/26/2018 COOKIE MENDEZ FACC, ALI FACP CCDS Ot 250.00 DIAB SAMEER WO COMPL, TYPE II OR UNSPEC TY 09/26/2018 COOKIE MENDEZ FACC, ALI FACP CCDS Ot 401.9 HYPERTENSION NOS 09/26/2018 COOKIE MENDEZ FACC, ALI FACP CCDS Ot 416.8 CHR PULMON HEART DIS NEC 09/26/2018 COOKIE MENDEZ FACC, ALI FACP CCDS Ot 424.3 PULMONARY VALVE DISORDER 09/26/2018 COOKIE MENDEZ FACC, ALI FACP CCDS Ot 729.81 SWELLING OF LIMB 09/26/2018 COOKIE MENDEZ FACC, ALI FACP CCDS Ot 250.00 DIAB SAMEER WO COMPL, TYPE II OR UNSPEC TY 09/26/2018 COOKIE MENDEZ FACC, ALI FACP CCDS Ot 401.9 HYPERTENSION NOS 09/26/2018 COOKIE ELAMC, ALI FACP CCDS Ot 424.3 PULMONARY VALVE DISORDER 09/26/2018 COOKIE MENDEZ FACC, ALI FACP CCDS Ot 729.81 SWELLING OF LIMB 09/26/2018 PAUL SELLERS MD Ot 596.51 HYPERTONICITY OF BLADDER 09/26/2018 PAUL SELLERS MD Ot 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 09/26/2018 PAUL SELLERS MD Ot 788.30 UNSPECIFIED URINARY INCONTINENCE 09/26/2018 PAUL SELLERS MD Ot V72.63 PRE-PROCEDURAL LABORATORY EXAMINATION 09/26/2018 PAUL SELLERS MD Ot V74.8 SCREEN-BACTERIAL DIS NEC 09/26/2018 KALEN WHITTEN NETWORK ADMINISTRATOR Ot 491.22 OBSTRUCTIVE CHRONIC BRONCHITIS WITH ACUT 09/26/2018 KALEN WHITTEN NETWORK ADMINISTRATOR Ot 493.90 ASTHMA, UNSPECIFIED 09/26/2018 KALEN WHITTEN NETWORK ADMINISTRATOR Ot 786.09 RESPIRATORY ABNORM NEC 09/26/2018 KALEN WHITTEN NETWORK ADMINISTRATOR Ot J44.0 CHRONIC OBSTRUCTIVE PULMON DISEASE W ACU 09/26/2018 KUN BUCKLEY BIOLOGICAL INSPECTOR Ot E78.4 OTHER HYPERLIPIDEMIA 09/26/2018 KUN BUCKLEY BIOLOGICAL INSPECTOR Ot F17.200 NICOTINE DEPENDENCE, UNSPECIFIED, UNCOMP 09/26/2018 KUN BUCKLEY BIOLOGICAL INSPECTOR Ot I10 ESSENTIAL (PRIMARY) HYPERTENSION 09/26/2018 KUN BUCKLEY BIOLOGICAL INSPECTOR Ot I37.0 NONRHEUMATIC PULMONARY VALVE STENOSIS 09/26/2018 RADHA NGO DO Ot K82.8 OTHER SPECIFIED DISEASES OF GALLBLADDER 09/26/2018 COOKIE MENDEZ FACSaman, ALI FACP CCDS Ot E11.9 TYPE 2 DIABETES MELLITUS WITHOUT COMPLIC 09/26/2018 COOKIE MENDEZ FACC, ALI FACP CCDS Ot E78.4 OTHER HYPERLIPIDEMIA 09/26/2018 COOKIE MENDEZ FACC, ALI FACP CCDS Ot F17.200 NICOTINE DEPENDENCE, UNSPECIFIED, UNCOMP 09/26/2018 COOKIE MENDEZ FACC, ALI FACP CCDS Ot I10 ESSENTIAL (PRIMARY) HYPERTENSION 09/26/2018 COOKIE MENDEZ FACC, ALI FACP CCDS Ot I37.0 NONRHEUMATIC PULMONARY VALVE STENOSIS 09/26/2018 COOKIE MENDEZ FACC, ALI FACP CCDS Ot R09.02 HYPOXEMIA 09/26/2018 BAIMAKUN L BIOLOGICAL INSPECTOR Ot E78.5 HYPERLIPIDEMIA, UNSPECIFIED 09/26/2018 BAIMA, KUN L BIOLOGICAL INSPECTOR Ot I10 ESSENTIAL (PRIMARY) HYPERTENSION 09/26/2018 BAIMA, KUN L BIOLOGICAL INSPECTOR Ot I37.0 NONRHEUMATIC PULMONARY VALVE STENOSIS 09/26/2018 BAIMA, KUN L BIOLOGICAL INSPECTOR Ot R06.09 OTHER FORMS OF DYSPNEA 09/26/2018 BAIMA, KUN L BIOLOGICAL INSPECTOR Ot E78.5 HYPERLIPIDEMIA, UNSPECIFIED 09/26/2018 BAIMA, KUN L BIOLOGICAL INSPECTOR Ot I10 ESSENTIAL (PRIMARY) HYPERTENSION 09/26/2018 BAIMA, KUN L BIOLOGICAL INSPECTOR Ot I37.0 NONRHEUMATIC PULMONARY VALVE STENOSIS 09/26/2018 BAIMA, KUN L BIOLOGICAL INSPECTOR Ot R06.09 OTHER FORMS OF DYSPNEA 09/26/2018 RAUDEL MENDEZ, SHAE Conner Ot Z01.818 ENCOUNTER FOR OTHER PREPROCEDURAL EXAMIN 09/26/2018 MARIA DOLORES, KALEN E NETWORK ADMINISTRATOR Ot F17.210 NICOTINE DEPENDENCE, CIGARETTES, UNCOMPL 09/26/2018 MARIA DOLORES, KALEN E NETWORK ADMINISTRATOR Ot J43.9 EMPHYSEMA, UNSPECIFIED 09/26/2018 MARIA DOLORES, KALEN E NETWORK ADMINISTRATOR Ot J45.909 UNSPECIFIED ASTHMA, UNCOMPLICATED 09/26/2018 MARIA DOLORES, KALEN E NETWORK ADMINISTRATOR Ot J84.10 PULMONARY FIBROSIS, UNSPECIFIED 09/26/2018 MARIA DOLORES, KALEN E NETWORK ADMINISTRATOR Ot Z12.2 ENCNTR SCREEN FOR MALIGNANT NEOPLASM OF 09/27/2018 MARIA DOLORES, KALEN E NETWORK ADMINISTRATOR Ot F17.210 NICOTINE DEPENDENCE, CIGARETTES, UNCOMPL 09/27/2018 MARIA DOLORES, KALEN E NETWORK ADMINISTRATOR Ot J43.9 EMPHYSEMA, UNSPECIFIED 09/27/2018 MARIA DOLORES, KALEN E NETWORK ADMINISTRATOR Ot J45.909 UNSPECIFIED ASTHMA, UNCOMPLICATED 09/27/2018 MARIA DOLORES, KALEN E NETWORK ADMINISTRATOR Ot J84.10 PULMONARY FIBROSIS, UNSPECIFIED 09/27/2018 MARIA DOLORES, KALEN E NETWORK ADMINISTRATOR Ot Z12.2 ENCNTR SCREEN FOR MALIGNANT NEOPLASM OF 09/27/2018 SHAE STARKS MD Ot Z01.818 ENCOUNTER FOR OTHER PREPROCEDURAL EXAMIN 10/05/2018 JET MENDEZ, BA Marie Ot 618.04 RECTOCELE 10/05/2018 BA CHAUDHARY MD Ot V72.63 PRE-PROCEDURAL LABORATORY EXAMINATION 10/05/2018 BA CHAUDHARY MD Ot V74.8 SCREEN-BACTERIAL DIS NEC 10/05/2018 BA CHAUDHARY MD Ot V76.12 OTH SCREEN MAMMO-MALIGN NEOPLASM OF CRISTEL 10/05/2018 COOKIE MENDEZ FACC, ALI FACP CCDS Ot 250.00 DIAB SAMEER WO COMPL, TYPE II OR UNSPEC TY 10/05/2018 COOKIE MENDEZ FACC, ALI FACP CCDS Ot 401.9 HYPERTENSION NOS 10/05/2018 COOKIE MENDEZ FACC, ALI FACP CCDS Ot 424.3 PULMONARY VALVE DISORDER 10/05/2018 COOKIE MENDEZ FACC, ALI FACP CCDS Ot 729.81 SWELLING OF LIMB 10/05/2018 COOKIE MENDEZ FACC, ALI FACP CCDS Ot 250.00 DIAB SAMEER WO COMPL, TYPE II OR UNSPEC TY 10/05/2018 COOKIE MD FACC, ALI FACP CCDS Ot 401.9 HYPERTENSION NOS 10/05/2018 COOKIE MENDEZ FACC, ALI FACP CCDS Ot 416.8 CHR PULMON HEART DIS NEC 10/05/2018 COOKIE MENDEZ FACC, ALI FACP CCDS Ot 424.3 PULMONARY VALVE DISORDER 10/05/2018 COOKIE MENDEZ FACC, ALI FACP CCDS Ot 729.81 SWELLING OF LIMB 10/05/2018 COOKIE MENDEZ FACC, ALI FACP CCDS Ot 250.00 DIAB SAMEER WO COMPL, TYPE II OR UNSPEC TY 10/05/2018 COOKIE MENDEZ FACC, ALI FACP CCDS Ot 401.9 HYPERTENSION NOS 10/05/2018 COOKIE MENDEZ FACC, ALI FACP CCDS Ot 424.3 PULMONARY VALVE DISORDER 10/05/2018 COOKIE MENDEZ FACC, ALI FACP CCDS Ot 729.81 SWELLING OF LIMB 10/05/2018 PAUL SELLERS MD Ot 596.51 HYPERTONICITY OF BLADDER 10/05/2018 PAUL SELLERS MD Ot 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 10/05/2018 PAUL SELLERS MD Ot 788.30 UNSPECIFIED URINARY INCONTINENCE 10/05/2018 PAUL SELLERS MD Ot V72.63 PRE-PROCEDURAL LABORATORY EXAMINATION 10/05/2018 VERITO MD, PAUL A Ot V74.8 SCREEN-BACTERIAL DIS NEC 10/05/2018 KALEN WHITTEN NETWORK ADMINISTRATOR Ot 491.22 OBSTRUCTIVE CHRONIC BRONCHITIS WITH ACUT 10/05/2018 KALEN WHITTEN NETWORK ADMINISTRATOR Ot 493.90 ASTHMA, UNSPECIFIED 10/05/2018 KALEN WHITTEN NETWORK ADMINISTRATOR Ot 786.09 RESPIRATORY ABNORM NEC 10/05/2018 KALEN WHITTEN NETWORK ADMINISTRATOR Ot J44.0 CHRONIC OBSTRUCTIVE PULMON DISEASE W ACU 10/05/2018 BAIMA, KUN L BIOLOGICAL INSPECTOR Ot E78.4 OTHER HYPERLIPIDEMIA 10/05/2018 BAIMA, KUN L BIOLOGICAL INSPECTOR Ot F17.200 NICOTINE DEPENDENCE, UNSPECIFIED, UNCOMP 10/05/2018 BAIMA, KUN L BIOLOGICAL INSPECTOR Ot I10 ESSENTIAL (PRIMARY) HYPERTENSION 10/05/2018 BAIMA, KUN L BIOLOGICAL INSPECTOR Ot I37.0 NONRHEUMATIC PULMONARY VALVE STENOSIS 10/05/2018 RADHA NGO DO Ot K82.8 OTHER SPECIFIED DISEASES OF GALLBLADDER 10/05/2018 COOKIE MENDEZ FAC, ALI FACP CCDS Ot E11.9 TYPE 2 DIABETES MELLITUS WITHOUT COMPLIC 10/05/2018 COOKIE MENDEZ FACC, ALI FACP CCDS Ot E78.4 OTHER HYPERLIPIDEMIA 10/05/2018 COOKIE MENDEZ FACC, ALI FACP CCDS Ot F17.200 NICOTINE DEPENDENCE, UNSPECIFIED, UNCOMP 10/05/2018 COOKIE MENDEZ FACC, ALI FACP CCDS Ot I10 ESSENTIAL (PRIMARY) HYPERTENSION 10/05/2018 COOKIE MENDZE FAC, ALI FACP CCDS Ot I37.0 NONRHEUMATIC PULMONARY VALVE STENOSIS 10/05/2018 COOKIE MENDEZ FAC, ALI FACP CCDS Ot R09.02 HYPOXEMIA 10/05/2018 BAIMA, KUN L BIOLOGICAL INSPECTOR Ot E78.5 HYPERLIPIDEMIA, UNSPECIFIED 10/05/2018 BAIMA, KUN L BIOLOGICAL INSPECTOR Ot I10 ESSENTIAL (PRIMARY) HYPERTENSION 10/05/2018 BAIMA, KUN L BIOLOGICAL INSPECTOR Ot I37.0 NONRHEUMATIC PULMONARY VALVE STENOSIS 10/05/2018 BAIMA, KUN L BIOLOGICAL INSPECTOR Ot R06.09 OTHER FORMS OF DYSPNEA 10/05/2018 BAIMA, KUN L BIOLOGICAL INSPECTOR Ot E78.5 HYPERLIPIDEMIA, UNSPECIFIED 10/05/2018 BAIMA, KUN L BIOLOGICAL INSPECTOR Ot I10 ESSENTIAL (PRIMARY) HYPERTENSION 10/05/2018 KUN BUCKLEY BIOLOGICAL INSPECTOR Ot I37.0 NONRHEUMATIC PULMONARY VALVE STENOSIS 10/05/2018 HAILEEKUN HUDSON Loyda BIOLOGICAL INSPECTOR Ot R06.09 OTHER FORMS OF DYSPNEA 10/05/2018 KALEN WHITTEN APRN Ot F17.210 NICOTINE DEPENDENCE, CIGARETTES, UNCOMPL 10/05/2018 KALEN WHITTEN NETWORK ADMINISTRATOR Ot J43.9 EMPHYSEMA, UNSPECIFIED 10/05/2018 KALEN WHITTEN APRN Ot J45.909 UNSPECIFIED ASTHMA, UNCOMPLICATED 10/05/2018 KALEN WHITTEN APRN Ot J84.10 PULMONARY FIBROSIS, UNSPECIFIED 10/05/2018 KALEN WHITTEN APRN Ot Z12.2 ENCNTR SCREEN FOR MALIGNANT NEOPLASM OF Procedures Code Description Performed By Performed On 59.5 RETROPUBIC URETH SUSPENS 10/28/2009 70.52 RECTOCELE REPAIR 10/28/2009 86.04 OTHER SKIN SUBQ I D 11/13/2009 70.52 RECTOCELE REPAIR 05/08/2013 Results Test Result Range ASO, Quantitative - 12/19/15 10:25 ASO, Quantitative <50.00 IU/ml 0.00-200.00 Sputum Gram stain - 03/03/16 10:00 GRAM STAIN SPUTUM AND MIXED BACTERIAL MESHA NR Bacterial sputum culture - 03/03/16 10:00 FREE TEXT EXTERNAL PLUS ABUNDANT NORMAL MESHA NRG QUANTITY OF GROWTH Scant Growth NRG Bacterial sputum culture [id number] NR Sputum Gram stain - 04/01/16 15:25 Bacterial sputum culture - 04/01/16 15:25 FREE TEXT EXTERNAL PLUS ABUNDANT NORMAL MESHA NRG QUANTITY OF GROWTH Scant Growth NRG Bacterial sputum culture [id number] NR Bacterial susceptibility panel - 04/01/16 15:25 Gentamicin susceptibility test by minimum inhibitory concentration < = NRG Trimethoprim/sulfamethoxazole susceptibility test by minimum inhibitoryconcentration <= NRG Ampicillin susceptibility test by minimum inhibitory concentration R NRG Tobramycin susceptibility test by minimum inhibitory concentration < = NRG Cefazolin susceptibility test by minimum inhibitory concentration < = NRG Ceftriaxone susceptibility test by minimum inhibitory concentration <= NRG Ampicillin/sulbactam susceptibility test by minimum inhibitory concentration 4 NRG Piperacillin/tazobactam susceptibility test by minimum inhibitory concentration <= NRG Ciprofloxacin susceptibility test by minimum inhibitory concentration <= NRG Meropenem susceptibility test by minimum inhibitory concentration < = NRG Aztreonam susceptibility test by minimum inhibitory concentration < = NRG Extended spectrum beta lactamase (ESBL) producing bacteria susceptibility test by minimum inhibitory concentration - [facility] Comprehensive Metabolic Panel - 07/01/16 14:22 Albumin 3.7 g/dL 3.6-5.1 ALP 79 U/L 35-130 ALT 15 U/L 6-45 Anion Gap 16 6-14 AST 22 U/L 2-40 BUN 12 mg/dL 5-25 Calcium 9.6 mg/dL 8.3-10.4 Chloride 100 mmol/L 95-114 CO2 25 mEq/L 22-33 Creat 0.85 mg/dL 0.50-1.50 eGFR 69 mL/min/1.73m2 >59 Globulin 2.5 g/dL 2.3-3.5 Glucose 210 mg/dL 70-110 Osmo 289 280-295 Potassium 4.1 mmol/L 3.5-5.3 Sodium 137 mmol/L 134-148 TBil 0.2 mg/dL 0.2-1.2 TP 6.2 g/dL 6.0-8.3 MRSA Screen - 07/01/16 14:22 FINAL CULTURE RESULTS MRSA Negative Nasal Culture MEDIA PLATED Setup at 14:35 on 07/01/2016 Mycoplasma - 07/26/16 10:45 Mycoplasma Negative Negative Influenza - 07/26/16 10:45 Influenza NEGATIVE FOR A and B 0.00-0.00 Urinalysis - 08/11/16 14:05 Icotest N/A Negative Urine Volume Urine Volume Sufficient (10mL) Urine Yeast No Yeast present Urine-Appearance Clear Clear Urine-Bacteria Trace Urine-Bilirubin Negative Negative Urine-Blood Negative Negative Urine-Color Yellow Colorless-Lt. Yellow Urine-Epithelial Cells 0-5/HPF Urine-Glucose Negative Negative Urine-Ketones Negative Negative Urine-Leukocytes Negative Negative Urine-Nitrite Negative Negative Urine-Other Urine Saved if Culture Needed (48hrs from time of collection) Urine-pH 7.0 5-8.5 Urine-Protein Negative Negative Urine-RBC Negative Urine-Specific [place] 1.015 1.000-1.030 Urine-WBC Negative Urobilinogen 0.2 E.U./dL 0.2-1.0 MRSA Screen - 08/11/16 14:05 FINAL CULTURE RESULTS MRSA Negative Nasal Culture MEDIA PLATED Setup at 14:17 on 08/11/2016 Comprehensive Metabolic Panel - 09/03/16 09:14 Albumin 3.7 g/dL 3.6-5.1 ALP 73 U/L 35-130 ALT 12 U/L 6-45 Anion Gap 15 6-14 AST 15 U/L 2-40 BUN 10 mg/dL 5-25 Calcium 9.5 mg/dL 8.3-10.4 Chloride 100 mmol/L 95-114 CO2 29 mEq/L 22-33 Creat 0.80 mg/dL 0.50-1.50 eGFR 74 mL/min/1.73m2 >59 Globulin 2.9 g/dL 2.3-3.5 Glucose 148 mg/dL 70-110 Osmo 291 280-295 Potassium 4.0 mmol/L 3.5-5.3 Sodium 140 mmol/L 134-148 TBil 0.3 mg/dL 0.2-1.2 TP 6.6 g/dL 6.0-8.3 Urinalysis - 09/28/16 11:49 Icotest N/A Negative Urine Volume Urine Volume Sufficient (10mL) Urine-Appearance Clear Clear Urine-Bilirubin Negative Negative Urine-Blood Negative Negative Urine-Color Yellow Colorless-Lt. Yellow Urine-Glucose 1+ Negative Urine-Ketones Negative Negative Urine-Leukocytes Negative Negative Urine-Nitrite Negative Negative Urine-Other Urine Saved if Culture Needed (48hrs from time of collection) Urine-pH 7.0 5-8.5 Urine-Protein Negative Negative Urine-Specific [place] 1.015 1.000-1.030 Urine-WBC Nothing Seen on Microscopic Urobilinogen 0.2 E.U./dL 0.2-1.0 Nasal Culture - 09/28/16 11:49 FINAL CULTURE RESULTS MRSA Negative Nasal Culture MEDIA PLATED Setup at 11:57 on 09/28/2016 Thyroid Stimulating Hormone - 12/13/16 09:37 TSH 1.12 mIU/mL 0.32-5.00 Protime - 02/18/17 12:31 INR 0.9 1.0-4.0 Protime 10.5 Sec 9.9-12.8 Surgical Pathology - 02/22/17 09:06 Surg Path Sent to [place] [facility] Comprehensive Metabolic Panel - 03/24/17 09:45 Albumin 3.8 g/dL 3.6-5.1 ALP 101 U/L 35-130 ALT 15 U/L 6-45 Anion Gap 14 6-14 AST 18 U/L 2-40 BUN 12 mg/dL 5-25 Calcium 10.1 mg/dL 8.3-10.4 Chloride 100 mmol/L 95-114 CO2 30 mEq/L 22-33 Creat 0.83 mg/dL 0.50-1.50 eGFR 71 mL/min/1.73m2 >59 Globulin 3.1 g/dL 2.3-3.5 Glucose 149 mg/dL 70-110 Osmo 291 280-295 Potassium 4.0 mmol/L 3.5-5.3 Sodium 140 mmol/L 134-148 TBil 0.2 mg/dL 0.2-1.2 TP 6.9 g/dL 6.0-8.3 Complete blood count (CBC) with automated white blood cell (WBC) differential - 04/19/17 14:40 Blood leukocytes automated count (number/volume) 9.5 10*3/uL 4.3-11.0 Blood erythrocytes automated count (number/volume) 3.86 10*6/uL 4.35-5.85 Venous blood hemoglobin measurement (mass/volume) 11.5 g/dL 11.5-16.0 Blood hematocrit (volume fraction) 34 % 35-52 Automated erythrocyte mean corpuscular volume 89 [foz_us] 80-99 Automated erythrocyte mean corpuscular hemoglobin (mass per erythrocyte) 30 pg 25-34 Automated erythrocyte mean corpuscular hemoglobin concentration measurement ( mass/volume) 34 g/dL 32-36 Automated erythrocyte distribution width ratio 13.2 % 10.0-14.5 Automated blood platelet count (count/volume) 483 10*3/uL 130-400 Automated blood platelet mean volume measurement 9.0 [foz_us] 7.4-10.4 Automated blood neutrophils/100 leukocytes 53 % 42-75 Automated blood lymphocytes/100 leukocytes 37 % 12-44 Blood monocytes/100 leukocytes 7 % 0-12 Automated blood eosinophils/100 leukocytes 3 % 0-10 Automated blood basophils/100 leukocytes 1 % 0-10 Blood neutrophils automated count (number/volume) 5.0 10*3 1.8-7.8 Blood lymphocytes automated count (number/volume) 3.5 10*3 1.0-4.0 Blood monocytes automated count (number/volume) 0.6 10*3 0.0-1.0 Automated eosinophil count 0.3 10*3/uL 0.0-0.3 Automated blood basophil count (count/volume) 0.1 10*3/uL 0.0-0.1 PT panel in platelet poor plasma by coagulation assay - 04/19/17 14:40 Prothrombin time (PT) in platelet poor plasma by coagulation assay 11.7 s 12.2-14.7 INR in platelet poor plasma or blood by coagulation assay 0.9 0.8-1.4 Liver function panel (serum or plasma alk phos, alb, total and direct bili, total protein, ALT, AST) - 04/19/17 14:40 Serum or plasma total bilirubin measurement (mass/volume) 0.2 mg/dL 0.1-1.0 Serum or plasma alkaline phosphatase measurement (enzymatic activity/volume) 97 U/L 40-136 Serum or plasma aspartate aminotransferase measurement (enzymatic activity/ volume) 14 U/L 5-34 Serum or plasma alanine aminotransferase measurement (enzymatic activity/volume ) 15 U/L 0-55 Serum or plasma protein measurement (mass/volume) 7.1 g/dL 6.4-8.2 Serum or plasma albumin measurement (mass/volume) 3.6 g/dL 3.2-4.5 Bilirubin direct < mg/dL 0.0-0.3 Serum or plasma indirect bilirubin measurement (mass/volume) 0.1 mg/ dL NRG Whole blood basic metabolic panel - 04/19/17 14:40 Serum or plasma sodium measurement (moles/volume) 134 mmol/L 135-145 Serum or plasma potassium measurement (moles/volume) 3.5 mmol/L 3.6-5.0 Serum or plasma chloride measurement (moles/volume) 96 mmol/L 98-107 Carbon dioxide 28 mmol/L 21-32 Serum or plasma anion gap determination (moles/volume) 10 mmol/L 5-14 Serum or plasma urea nitrogen measurement (mass/volume) 7 mg/dL 7-18 Serum or plasma creatinine measurement (mass/volume) 0.77 mg/dL 0.60-1.30 Serum or plasma urea nitrogen/creatinine mass ratio 9 NRG Serum or plasma creatinine measurement with calculation of estimated glomerular filtration rate > NRG Serum or plasma glucose measurement (mass/volume) 308 mg/dL 70-105 Serum or plasma calcium measurement (mass/volume) 9.9 mg/dL 8.5-10.1 Methicillin resistant Staphylococcus aureus (MRSA) screening culture - 14:40 Methicillin resistant Staphylococcus aureus (MRSA) screening culture NEG NRG Capillary blood glucose measurement by glucometer (mass/volume) - 04/22/17 07: 25 Capillary blood glucose measurement by glucometer (mass/volume) 256 mg/dL 70-110 Comprehensive Metabolic Panel - 06/27/17 10:18 Albumin 3.8 g/dL 3.6-5.1 ALP 111 U/L 35-130 ALT 12 U/L 6-45 Anion Gap 14 6-14 AST 17 U/L 2-40 BUN 9 mg/dL 5-25 Calcium 9.7 mg/dL 8.3-10.4 Chloride 99 mmol/L 95-114 CO2 29 mEq/L 22-33 Creat 0.81 mg/dL 0.50-1.50 eGFR 72 mL/min/1.73m2 >59 Globulin 3.1 g/dL 2.3-3.5 Glucose 189 mg/dL 70-110 Osmo 288 280-295 Potassium 4.1 mmol/L 3.5-5.3 Sodium 138 mmol/L 134-148 TBil 0.2 mg/dL 0.2-1.2 TP 6.9 g/dL 6.0-8.3 Sputum Culture - 09/01/17 13:16 PRELIM CULTURE RESULTS Moderate Gram Negative DAMIEN / ID to Follow MEDIA PLATED Setup at 14:12 on 09/01/2017 Sensi - 09/01/17 13:16 FINAL CULTURE RESULTS Acinetobacter baumannii complex/haemolyticus ( Isolate 1) Ampicillin/Sulbactam >16/8 Ampicillin >16 Amoxicillin/K Clavulanate >16/8 Ceftriaxone >32 Ciprofloxacin <=1 Nitrofurantoin >64 Gentamicin >8 Levofloxacin <=2 Trimethoprim/ Sulfamethoxazole <=2/38 Tetracycline 8 Amikacin 32 Aztreonam >16 Ceftazidime >16 Ceftazidime/K Clavulanate >2 Cephalothin >16 Cefotaxime >32 Cefotaxime/K Clavulanate >4 Cefoxitin >16 Cefazolin >16 Cefepime 16 Cefuroxime >16 Ertapenem >4 Imipenem N/R Meropenem >8 Piperacillin/Tazobactam N/R Piperacillin 64 Tigecycline N/R Tobramycin >8 Sensi - 09/01/17 13:16 Ampicillin/Sulbactam >16/8 Ampicillin >16 Amoxicillin/K Clavulanate >16/8 Ceftriaxone >32 Ciprofloxacin <=1 Nitrofurantoin >64 Gentamicin <=4 Levofloxacin <=2 Trimethoprim/ Sulfamethoxazole >2/38 Tetracycline >8 Amikacin <=16 Aztreonam <=8 Ceftazidime 8 Ceftazidime/K Clavulanate >2 Cephalothin >16 Cefotaxime 16 Cefotaxime/K Clavulanate >4 Cefoxitin >16 Cefazolin >16 Cefepime <=8 Cefuroxime >16 Ertapenem 4 Imipenem <=4 Meropenem <=4 Piperacillin/Tazobactam <=16 Piperacillin <=16 Tigecycline N/R Tobramycin <=4 FINAL CULTURE RESULTS Pseudomonas aeruginosa (Isolate 2) Mycoplasma - 09/01/17 13:25 Mycoplasma Negative Negative Blood Culture - 09/01/17 13:25 PRELIM CULTURE RESULTS Blood Culture Negative, No Growth Day 1 FINAL CULTURE RESULTS Blood Culture Negative, No Growth Day 5 MEDIA PLATED Setup at 13:57 on 09/01/2017 Blood Culture Media Position C47 CULTURE SOURCE Right AC C.difficile, DNA Amplification - 09/01/17 13:59 C.difficile, DNA Amplification NEGATIVE: No DNA evidence of toxogenic C. difficile detected. Negative Blood Culture - 09/01/17 14:00 PRELIM CULTURE RESULTS Blood Culture Negative, No Growth Day 1 FINAL CULTURE RESULTS Blood Culture Negative, No Growth Day 5 MEDIA PLATED Setup at 14:11 on 09/01/2017, Blood Culture Media Position C436 CULTURE SOURCE right arm iv start Comprehensive Metabolic Panel - 09/02/17 06:28 Albumin 3.5 g/dL 3.6-5.1 ALP 77 U/L 35-130 ALT 14 U/L 6-45 Anion Gap 17 6-14 AST 15 U/L 2-40 BUN 10 mg/dL 5-25 Calcium 9.5 mg/dL 8.3-10.4 Chloride 101 mmol/L 95-114 CO2 25 mEq/L 22-33 Creat 0.69 mg/dL 0.50-1.50 eGFR 87 mL/min/1.73m2 >59 Globulin 2.6 g/dL 2.3-3.5 Glucose 208 mg/dL 70-110 Osmo 292 280-295 Potassium 3.7 mmol/L 3.5-5.3 Sodium 139 mmol/L 134-148 TBil 0.4 mg/dL 0.2-1.2 TP 6.1 g/dL 6.0-8.3 [facility] - 09/03/17 06:43 Anion Gap 16 6-14 BUN 10 mg/dL 5-25 Calcium 9.4 mg/dL 8.3-10.4 Chloride 101 mmol/L 95-114 CO2 26 mEq/L 22-33 Creat 0.70 mg/dL 0.50-1.50 eGFR 86 mL/min/1.73m2 >59 Glucose 132 mg/dL 70-110 Osmo 288 280-295 Potassium 3.7 mmol/L 3.5-5.3 Sodium 139 mmol/L 134-148 Urinalysis - 09/04/17 14:31 Icotest N/A Negative Urine Volume Urine Volume Sufficient (10mL) Urine Yeast No Yeast present Urine-Appearance Clear Clear Urine-Bacteria Negative Urine-Bilirubin Negative Negative Urine-Blood Negative Negative Urine-Color Yellow Colorless-Lt. Yellow Urine-Epithelial Cells 0-5/HPF Urine-Glucose Negative Negative Urine-Ketones Negative Negative Urine-Leukocytes Negative Negative Urine-Nitrite Negative Negative Urine-Other Urine Saved if Culture Needed (48hrs from time of collection) Urine-pH 7.0 5-8.5 Urine-Protein Negative Negative Urine-RBC Negative Urine-Specific [place] 1.015 1.000-1.030 Urine-WBC Negative Urobilinogen 0.2 E.U./dL 0.2-1.0 CBC with Auto Diff - 09/05/17 06:43 Baso% 0.30 % 0.00-2.50 Eos 0.3 K/uL 0.0-0.7 Eos% 2.4 % 0.0-7.0 Hct 32.4 % 36.0-46.0 Hgb 10.5 g/dL 13.0-15.0 Lym 3.19 K/uL 0.60-3.40 Lym% 30.4 % 10.0-50.0 MCH 29.7 pg 27.0-31.0 MCHC 32.4 g/dL 32.0-36.0 MCV 91.5 fL 80.0-97.0 [place]% 11.3 % 0.0-12.0 MPV 8.7 fL 7.4-10.0 Vijay% 55.6 % 37.0-80.0 Plt 304 K/uL 150-400 RBC 3.54 M/uL 3.60-5.00 RDW 13.3 % 11.6-14.8 WBC 10.49 K/uL 5.00-10.00 Vijay 5.83 K/uL 2.00-6.90 [place] 1.2 K/uL 0.0-0.9 Baso 0.0 K/uL 0.0-0.2 Thyroid Stimulating Hormone - 10/07/17 08:52 TSH 2.28 mIU/mL 0.32-5.00 Comprehensive Metabolic Panel - 01/19/18 09:56 Albumin 4.0 g/dL 3.6-5.1 ALP 64 U/L 35-130 ALT 12 U/L 6-45 Anion Gap 18 6-14 AST 14 U/L 2-40 BUN 18 mg/dL 5-25 Calcium 10.0 mg/dL 8.3-10.4 Chloride 97 mmol/L 95-114 CO2 27 mEq/L 22-33 Creat 0.86 mg/dL 0.50-1.50 eGFR 67 mL/min/1.73m2 >59 Globulin 2.4 g/dL 2.3-3.5 Glucose 214 mg/dL 70-110 Osmo 293 280-295 Potassium 3.7 mmol/L 3.5-5.3 Sodium 138 mmol/L 134-148 TBil 0.2 mg/dL 0.2-1.2 TP 6.4 g/dL 6.0-8.3 Lipid Panel - 05/01/18 07:36 C/HDL 5.5 3.7-6.7 Cholesterol 371 mg/dL 100-240 HDL 68 mg/dL 30-85 LDL-Calculated 244 mg/dL 0-100 Trig 293 mg/dL 35-160 VLDL 59 mg/dL 0-42 Microalbumin - 05/01/18 07:36 Microalb 11.0 mg/L 0.0-20.0 Thyroid Stimulating Hormone - 08/16/18 09:10 TSH 2.62 mIU/mL 0.32-5.00 Methicillin resistant Staphylococcus aureus (MRSA) screening culture - 15:45 Methicillin resistant Staphylococcus aureus (MRSA) screening culture NEG NRG Encounters ACCT No. Visit Date/Time Discharge Status Pt. Type Provider Facility Loc./Unit Complaint [id number] 09/29/2018 15:15:00 09/29/2018 23:59:59 CLS Preadmit KALEN WHITTEN APRN [facility] [address] RAD SMOKER,COPD,ASTHMA [id number] 09/26/2018 14:39:00 09/26/2018 15:52:00 DIS Outpatient SHAE STARKS MD [facility] [address] PREOP HERNIATED NUCLEUS PULPOSUS [id number] 09/21/2018 14:03:00 09/21/2018 23:59:59 CLS Outpatient KALEN WHITTEN APRN [facility] [address] RAD SMOKER, COPD [id number] 01/19/2018 12:13:00 01/19/2018 23:59:59 CLS Outpatient KUN BUCKLEY BIOLOGICAL INSPECTOR [facility] [address] CARD PULMONIC STENOSIS [id number] 01/13/2018 15:28:00 01/13/2018 23:59:59 CLS Outpatient KUN BUCKLEY BIOLOGICAL INSPECTOR [facility] [address] RT PULMONIC STENOSIS [id number] 01/03/2018 11:15:00 01/03/2018 23:59:59 CLS Outpatient COOKIE MENDEZ FACC, RANCHO SIMS CCDS [facility] [address] CARD SANDHU,HTN,HLP [id number] 04/22/2017 07:16:00 04/22/2017 12:35:00 DIS Outpatient RHETT NGO DOTIE [facility] [address] SDC REFLUX,GERD,HIATAL HERNIA [id number] 04/19/2017 13:38:00 04/19/2017 15:00:00 DIS Outpatient TREVOR NGO DOROUTIE [facility] [address] PREOP GALLBLADDER [id number] 04/18/2017 11:38:00 04/18/2017 23:59:59 CLS Outpatient TREVOR NGO DOROUTIE [facility] [address] CARD PAIN AFTER EATING [id number] 03/03/2016 11:40:00 04/02/2016 08:29:00 DIS Outpatient KALEN WHITTEN APRN [facility] [address] LAB PNEUMONIA [id number] 04/01/2016 15:34:00 04/02/2016 08:28:00 DIS Outpatient KALEN WHITTEN NETWORK ADMINISTRATOR [facility] [address] RAD COPD,SANDHU,PNEUMONIA, ASTHMA [id number] 02/26/2016 14:38:00 02/26/2016 23:59:59 CLS Outpatient KUN BUCKLEY BIOLOGICAL INSPECTOR [facility] [address] CARD PULMONIC VALVE STENOSIS,HLP,HTN [id number] 07/10/2015 15:00:00 07/10/2015 23:59:59 CLS Preadmit KALEN WHITTEN APRN [facility] [address] PUL COPD,DYSPNEA [id number] 05/22/2015 13:00:00 07/09/2015 00:01:00 DIS Outpatient KALEN WHITTEN NETWORK ADMINISTRATOR [facility] [address] PUL COPD,DYSPNEA [id number] 04/08/2015 13:00:00 04/09/2015 00:01:00 DIS Outpatient KALEN WHITTEN NETWORK ADMINISTRATOR [facility] [address] PUL COPD,DYSPNEA [id number] 01/06/2015 16:25:00 01/06/2015 23:59:59 CLS Outpatient KALEN WHITTEN APRN [facility] [address] RAD SANDHU,COPD [id number] 11/26/2014 06:10:00 11/26/2014 10:10:00 DIS Outpatient PAUL SELLERS MD [facility] [address] SDC INCONTINENCE; OVERACTIVE BLADDER [id number] 11/22/2014 09:43:00 11/22/2014 23:59:59 CLS Outpatient PAUL SELLERS MD [facility] [address] PREOP INCONTINENCE, OVERACTIVE BLADDER [id number] 06/08/2014 11:24:00 06/08/2014 13:07:00 DIS Emergency DILSHAD CHOU NETWORK ADMINISTRATOR [facility] [address] ER BACK PAIN [id number] 10/25/2013 21:12:00 10/26/2013 07:30:00 DIS Outpatient RONNA VIDES DO [facility] [address] SLEEP SNORING,CHOKING,HTN,EDS ,MORNING HEADACHE [id number] 09/20/2013 10:08:00 09/20/2013 23:59:59 CLS Outpatient COOKIE MENDEZ FACC, ALI FACP CCDS [facility] [address] CARD HTN,LEG SWELLING,PULMONARY STENOSIS,DM [id number] 09/19/2013 14:29:00 09/19/2013 23:59:59 CLS Outpatient COOKIE MENDEZ FACC, ALI FACP CCDS [facility] [address] RT HTN,LEG SWELLING,PULMONARY STENOSIS,DM [id number] 09/12/2013 08:17:00 09/12/2013 23:59:59 CLS Outpatient COOKIE MENDEZ FACSaman, ALI FACP CCDS [facility] [address] RAD HTN,LEG SWELLING,PULMONARY STENOSIS,DM [id number] 07/30/2013 10:12:00 07/30/2013 23:59:59 CLS Outpatient BA CHAUDHARY MD [facility] [address] RAD SCREENING [id number] 05/08/2013 07:10:00 05/09/2013 14:50:00 DIS Inpatient BA CHAUDHARY MD [facility] [address] WS RECTOCELE [id number] 04/16/2013 09:18:00 04/16/2013 23:59:59 CLS Outpatient BA CHAUDHARY MD [facility] [address] PREOP RECTOCYLE [id number] 03/15/2013 11:50:00 03/15/2013 23:59:59 CLS Outpatient COOKIE MENDEZ FACC, ALI FACP CCDS [facility] [address] RAD DYSPNEA,HX OF MOD PULM HTN [id number] 10/09/2018 07:30:00 PEN Preadmit SHAE STARKS MD [facility] [address] SDC HERNIATED NUCLEUS PULPOSUS [id number] 11/22/2014 10:36:00 Document Registration [id number] 11/22/2014 10:36:00 Document Registration [id number] 11/22/2014 10:35:00 Document Registration [id number] 11/22/2014 10:35:00 Document Registration [id number] 11/22/2014 10:35:00 Document Registration [id number] 11/22/2014 10:35:00 Document Registration [id number] 11/22/2014 10:35:00 Document Registration [id number] 11/26/2011 13:20:00 Document Registration [id number] 12/08/2010 10:24:00 Document Registration [id number] 12/03/2010 09:55:00 Document Registration [id number] 05/28/2010 05:51:00 Document Registration [id number] 05/26/2010 10:18:00 Document Registration [id number] 05/26/2010 10:14:00 Document Registration [id number] 05/12/2010 15:38:00 Document Registration [id number] 04/29/2010 20:07:00 Document Registration [id number] 10/08/2009 07:57:00 Document Registration [id number] 10/06/2009 13:44:00 Document Registration [id number] 10/02/2009 15:04:00 Document Registration [id number] 09/19/2018 17:27:00 09/19/2018 18:42:00 [id number] 09/11/2018 13:24:00 09/11/2018 23:59:00 DIS Outpatient AdamAnna [id number] 08/16/2018 09:01:00 08/16/2018 23:59:00 DIS Outpatient AdamAnna [id number] 05/01/2018 07:32:00 05/01/2018 23:59:00 DIS Outpatient AdamAnna [id number] 04/27/2018 10:52:00 04/27/2018 12:40:00 [id number]/05/2018 00:00:00 02/05/2018 23:59:00 DIS Outpatient Adam, Anna [id number] 02/01/2018 08:45:00 02/01/2018 23:59:00 DIS Outpatient JOSE MANUEL HANSON [id number] 01/19/2018 09:03:00 01/19/2018 23:59:00 DIS Outpatient Anna Medina [id number] 01/17/2018 10:11:00 01/17/2018 23:59:00 DIS Outpatient JOSE MANUEL HANSON [id number] 11/30/2017 10:10:00 11/30/2017 23:59:00 DIS Outpatient JOSE MANUEL HANSON [id number] 10/27/2017 06:23:00 10/27/2017 11:40:00 DIS Outpatient JOSE MANUEL HANSON [id number] 10/25/2017 13:34:00 10/25/2017 23:59:00 DIS Outpatient JOSE MANUEL HANSON [id number] 10/19/2017 00:00:00 10/19/2017 23:59:00 DIS Outpatient Anna Medina [id number] 10/15/2017 18:35:00 10/15/2017 20:50:00 DIS Outpatient Yves Aleena [facility] ER [id number] 10/07/2017 08:35:00 10/07/2017 23:59:00 DIS Outpatient Michelle Medinaa [id number] 09/14/2017 13:32:00 09/14/2017 23:59:00 DIS Outpatient Anna Medina [id number] 09/01/2017 14:00:00 09/05/2017 14:35:00 DIS Inpatient [facility] MED-SURG [id number] 06/27/2017 10:11:00 06/27/2017 23:59:00 DIS Outpatient Anna Medina [id number] 04/13/2017 08:46:00 04/13/2017 23:59:00 DIS Outpatient Radha Ngo [id number] 03/24/2017 09:41:00 03/24/2017 23:59:00 DIS Outpatient Adam Anna [id number] 03/09/2017 09:57:00 03/09/2017 23:59:00 DIS Outpatient Radha Ngo [id number] 03/03/2017 20:32:00 03/03/2017 22:08:00 DIS Outpatient [facility] [id number] 02/22/2017 00:00:00 02/22/2017 10:34:00 DIS Outpatient Radha Ngo [id number] 02/18/2017 11:56:00 02/18/2017 23:59:00 DIS Outpatient Radha Ngo [id number] 12/13/2016 09:34:00 12/13/2016 23:59:00 DIS Outpatient Adam, Anna [id number] 09/30/2016 00:00:00 09/30/2016 12:15:00 DIS Outpatient JOSE MANUEL HANSON [id number] 09/28/2016 11:28:00 09/28/2016 23:59:00 DIS Outpatient VALENTINJOSE MANUEL COTTO [id number] 09/03/2016 08:56:00 09/03/2016 23:59:00 DIS Outpatient Anna Medina [id number] 08/19/2016 00:00:00 08/19/2016 10:27:00 DIS Outpatient JOSE MANUEL HANSON [id number] 08/11/2016 13:37:00 08/11/2016 23:59:00 DIS Outpatient JOSE MANUEL HANSON [id number] 07/26/2016 10:06:00 07/26/2016 13:06:00 DIS Outpatient [facility] [id number] 07/08/2016 00:00:00 07/08/2016 12:55:00 DIS Outpatient JOSE MANUEL HANSON [id number] 07/01/2016 14:14:00 07/01/2016 23:59:00 DIS Outpatient JOSE MANUEL HANSON [id number] 07/01/2016 12:54:00 07/01/2016 12:54:00 CAN Outpatient JOSE MANUEL HANSON [id number] 06/21/2016 12:51:00 06/21/2016 23:59:00 DIS Outpatient Anna Medina [id number] 07/08/2016 10:39:55 Document Registration [id number] 12/19/2015 10:20:00 Document Registration [email or web address] 04/22/2015 17:21:04 ACT Document Registration [id number] 08/11/2016 09:00:17 04/03/2018 08:56:00 DIS R JOSE MANUEL HANSON [facility] OT S/P L CTR [id number] 11/16/2017 13:48:47 03/22/2018 10:49:00 DIS R JOSE MANUEL HANSON [facility] PT Rotator Cuff [id number] 08/28/2017 10:29:00 08/28/2017 14:30:00 DIS Emergency LisandroZena [facility] ED ed visit [id number] 08/09/2016 15:16:26 08/09/2016 23:59:59 CLS Preadmit [facility] PT Left Wrist
[2018-10-09] MEDS ORDERED: BUP/EPI 0.5% 1:200,000 (SENSORCAINE) 30 ML VIAL ONE (07:26)
[2018-10-09] MEDS ORDERED: GENTAMICIN 40 MG/ML 2 ML INJ SDV ONE (07:27)
[2018-10-09] MEDS ORDERED: BACITRACIN OINTMENT 28 GM TUBE ONE (07:27)
[2018-10-09 07:37] LABS: BASOPHILS # (AUTO) 0.1 10^3/uL (0.0-0.1); BASOPHILS % (AUTO) 1 % (0-10); EOSINOPHILS # (AUTO) 0.3 10^3/uL (0.0-0.3); EOSINOPHILS % (AUTO) 4 % (0-10); HEMATOCRIT 35 % (35-52); HEMOGLOBIN 11.7 G/DL (11.5-16.0); LYMPHOCYTES # (AUTO) 3.2 X 10^3 (1.0-4.0); LYMPHOCYTES % (AUTO) 44 % (12-44); MEAN CORPUSCULAR HEMOGLOBIN 30 PG (25-34); MEAN CORPUSCULAR HGB CONC 34 G/DL (32-36); MEAN CORPUSCULAR VOLUME 90 FL (80-99); MEAN PLATELET VOLUME 9.5 FL (7.4-10.4); MONOCYTES # (AUTO) 0.6 X 10^3 (0.0-1.0); MONOCYTES % (AUTO) 8 % (0-12); NEUTROPHILS # (AUTO) 3.1 X 10^3 (1.8-7.8); NEUTROPHILS % (AUTO) 43 % (42-75); PLATELET COUNT 310 10^3/uL (130-400); RED CELL DISTRIBUTION WIDTH 13.7 % (10.0-14.5); WHITE BLOOD COUNT 7.2 10^3/uL (4.3-11.0)
[2018-10-09] MEDS: LACTATED RINGERS 1,000 ML IV PRN ×2 (07:40→10:51)
[2018-10-09] MEDS ORDERED: fentaNYL INJECTION 100 MCG/2 ML AMP ONE (07:42)
[2018-10-09] MEDS ORDERED: MIDAZOLAM 2 MG/2 ML (VERSED) VIAL ONE (07:42)
[2018-10-09] MEDS ORDERED: inSUlin ASPART (NovoLOG) 1 UNIT/0.01 ML (CHARGE PER UNIT) IV ONE (07:45)
[2018-10-09] MEDS ORDERED: ceFAZolin 2 GM IV Premixed 50 ML IV ONE (08:00)
[2018-10-09] MEDS ORDERED: ROCURONIUM 10 MG/ML 5 ML SYRINGE IV ONE (09:26)
[2018-10-09] MEDS ORDERED: proPOfol 200 MG/20 ML (DIPRIVAN) VIAL IV ONE (09:26)
[2018-10-09] MEDS ORDERED: ONDANSETRON 4 MG/2 ML (SDV) Z0FRAN ONE (09:26)
[2018-10-09] MEDS ORDERED: PROPOFOL INJECTION 50 ML IV ONE (09:32)
[2018-10-09] MEDS ORDERED: LIDOCAINE PF 2% 5 ML (XYLOCAINE) VIAL ONE (09:32)
[2018-10-09] MEDS ORDERED: SEVOFLURANE (ULTANE) 15 ML INHAL SOLN ONE (09:32)
--- NOTE | 2018-10-09 09:43 | Progress Note-Post Operative ---
Post-Operative Progess Note Surgeon (s)/Director Trade (s) Surgeon SHAE STARKS MD Director Trade: MARIBELL Anthony Pre-Operative Diagnosis HERNIATED NUCLEUS PULPOSUS Post-Operative Diagnosis Same Procedure & Operative Findings Date of Procedure 10/09/18 Procedure Performed/Findings Right L5-S1 Microdisc Anesthesia Type GETA Estimated Blood Loss Estimated blood loss (mL): Min Specimens/Packing Specimens Removed None SHAE STARKS MD Oct 09, 2018 09:43
[2018-10-09] MEDS ORDERED: GLYCOPYRROLATE 0.2 MG/ML (ROBINUL) 2 ML VIAL ONE (09:55)
[2018-10-09] MEDS ORDERED: NEOSTIGMINE 1 MG/ML 5 ML SYRINGE ONE (09:55)
[2018-10-09 11:00] VITALS: BP 149/107
--- NOTE | 2018-10-09 11:02 | Diagnostic Imaging Report ---
Indication: Fluoroscopy for lumbar spine surgery. Fluoroscopy was provided in the OR during lumbar spine surgery. 5 seconds of fluoroscopy was utilized. Single image demonstrates a surgical instrument posteriorly at the L5-S1 level. Impression: Fluoroscopy during lumbar spine surgery in the OR. Dictated by: Dictated on workstation # [id number]
[2018-10-09] MEDS ORDERED: HYDROcodone/APAP 5 MG/325 MG (LORTAB) TAB ONE (11:19)
--- NOTE | 2018-10-09 11:27 | NUR ---
LORTAB 5/325 MG, ONE TAB, GIVEN PO FOR C/O LOW BACK SURGICAL SITE PAIN RATED 8 ON RETURN TO AMB SURG FROM PAR. ICE PACK TO SITE. TAKING PO FLUIDS AND CRACKERS WITHOUT PROBLEM.
[2018-10-09 11:30] VITALS: BP 141/73
[2018-10-09] MEDS ORDERED: HYDROcodone/APAP 5 MG/325 MG (LORTAB) TAB PO ONE (11:30)
--- NOTE | 2018-10-09 12:15 | NUR ---
STATES PAIN IS DECREASING, RATES 5-6.
[2018-10-09 12:50] VITALS: BP 147/80
--- NOTE | 2018-10-09 13:00 | NUR ---
HAS BEEN UP TO BR WITH ASSIST, GAIT STEADY, VOIDED WITHOUT PROBLEM. DSG REMAINS D/I TO SURGICAL SITE. PAIN RATE 3-4. STATES SHE IS READY FOR DISMISSAL.
[2018-10-09 13:20] VITALS: BP 147/80
--- NOTE | 2018-10-09 14:39 | Anesthesia-General Post-Op ---
General Patient Condition Mental Status/LOC: Same as Preop Cardiovascular: Satisfactory Nausea/Vomiting: Absent Respiratory: Satisfactory Pain: Controlled Complications: Absent Post Op Complications Complications None Follow Up Care/Instructions Patient Instructions None needed. Anesthesia/Patient Condition Patient Condition Patient is doing well, no complaints, stable vital signs, no apparent adverse anesthesia problems. No complications reported per nursing. ROBBIN SOTO CRNA Oct 09, 2018 14:39
== END 2018-10-09 13:20 | disposition home or self-care (01) ==
LOC: SDC 07:06
PROVIDERS: ATTEND Orthopaedic Surgery Orthopaedic Surgery of the Spine
DX: M51.27 Other intervertebral disc displacement, lumbosacral region (principal); I10 Essential (primary) hypertension; E11.9 Type 2 diabetes mellitus without complications; E03.9 Hypothyroidism, unspecified; E78.5 Hyperlipidemia, unspecified; I25.10 Atherosclerotic heart disease of native coronary artery without angina pectoris; J44.9 Chronic obstructive pulmonary disease, unspecified; F41.9 Anxiety disorder, unspecified; F32.9 Major depressive disorder, single episode, unspecified; K21.9 Gastro-esophageal reflux disease without esophagitis; F17.210 Nicotine dependence, cigarettes, uncomplicated; Z86.718 Personal history of other venous thrombosis and embolism; Z79.4 Long term (current) use of insulin; Z79.82 Long term (current) use of aspirin; Z79.899 Other long term (current) drug therapy; Z99.81 Dependence on supplemental oxygen; Z88.5 Allergy status to narcotic agent
CPT/HCPCS: 36415; 82962; 85025; 86850; 86900; 86901

== ENCOUNTER → 2018-11-16 | Outpatient (CLI) | payer MEDICAID ==
--- NOTE | 2018-11-16 12:15 | Diagnostic Imaging Report ---
PROCEDURE: US Venous Lower Ext [place]. TECHNIQUE: Multiple real-time grayscale images were obtained over the lower extremities in various projections, bilaterally. Additional duplex Doppler and color Doppler images were also obtained. INDICATION: Bilateral lower extremity swelling. There is no evidence of right or left lower extremity DVT. Both lower extremity deep venous system shows normal compressibility with normal response to augmentation and Valsalva. No fluid collection or mass is seen. IMPRESSION: No evidence of right or left lower extremity DVT. Dictated by: Dictated on workstation # [id number]
== END ==
LOC: RAD 11:35
PROVIDERS: ATTEND Internal Medicine Cardiovascular Disease
DX: M79.89 Other specified soft tissue disorders (principal); I10 Essential (primary) hypertension; E78.5 Hyperlipidemia, unspecified; E11.9 Type 2 diabetes mellitus without complications; J44.1 Chronic obstructive pulmonary disease with (acute) exacerbation; I65.23 Occlusion and stenosis of bilateral carotid arteries; F17.200 Nicotine dependence, unspecified, uncomplicated
CPT/HCPCS: 93970

== ENCOUNTER → 2018-11-20 | Outpatient (CLI) | payer MEDICAID ==
[2018-11-20 09:46] LABS: BASOPHILS # (AUTO) 0.1 10^3/uL (0.0-0.1); BASOPHILS % (AUTO) 1 % (0-10); EOSINOPHILS # (AUTO) 0.4 10^3/uL (0.0-0.3); EOSINOPHILS % (AUTO) 5 % (0-10); HEMATOCRIT 37 % (35-52); HEMOGLOBIN 12.1 G/DL (11.5-16.0); LYMPHOCYTES # (AUTO) 3.3 X 10^3 (1.0-4.0); LYMPHOCYTES % (AUTO) 40 % (12-44); MEAN CORPUSCULAR HEMOGLOBIN 29 PG (25-34); MEAN CORPUSCULAR HGB CONC 33 G/DL (32-36); MEAN CORPUSCULAR VOLUME 90 FL (80-99); MEAN PLATELET VOLUME 9.1 FL (7.4-10.4); MONOCYTES # (AUTO) 0.5 X 10^3 (0.0-1.0); MONOCYTES % (AUTO) 6 % (0-12); NEUTROPHILS % (AUTO) 48 % (42-75); PLATELET COUNT 435 10^3/uL (130-400); RED CELL DISTRIBUTION WIDTH 13.4 % (10.0-14.5); WHITE BLOOD COUNT 8.4 10^3/uL (4.3-11.0)
[2018-11-20 10:06] LABS: ALANINE AMINOTRANSFERASE 16 U/L (0-55); ALKALINE PHOSPHATASE 118 U/L (40-136); BILIRUBIN,TOTAL 0.3 MG/DL (0.1-1.0); BUN/CREATININE RATIO 14; CALCIUM 10.1 MG/DL (8.5-10.1); CARBON DIOXIDE 25 MMOL/L (21-32); CHLORIDE 101 MMOL/L (98-107); CHOLESTEROL 242 MG/DL (< 200); CREATININE SERUM 0.91 MG/DL (0.60-1.30); GFR ESTIMATED > 60; GLUCOSE 319 MG/DL (70-105); HDL CHOLESTEROL 67 MG/DL (40-60); MAGNESIUM 1.4 MG/DL (1.8-2.4); POTASSIUM 3.7 MMOL/L (3.6-5.0); SODIUM 141 MMOL/L (135-145); TRIGLYCERIDES 252 MG/DL (<150); VLDL CHOLESTEROL 50 MG/DL (5-40)
== END ==
LOC: LAB 09:16
PROVIDERS: ATTEND Internal Medicine Cardiovascular Disease
DX: I10 Essential (primary) hypertension (principal); E11.9 Type 2 diabetes mellitus without complications; E78.5 Hyperlipidemia, unspecified; M54.5 Low back pain; J44.0 Chronic obstructive pulmonary disease with (acute) lower respiratory infection; J20.9 Acute bronchitis, unspecified; R06.09 Other forms of dyspnea; F17.200 Nicotine dependence, unspecified, uncomplicated
CPT/HCPCS: 36415; 80053; 80061; 83735; 83880; 84443; 85025

== ENCOUNTER → 2020-02-12 | Outpatient (CLI) | payer MEDICAID ==
[~2020-02-12] MED LIST changes: -GUAI400T44 PO; +GUAI400T85 PO; -HYDR-3812 PO; -MONT10TA24 PO; +MONT10TA26 PO
--- NOTE | 2020-02-12 15:23 | Diagnostic Imaging Report ---
EXAMINATION: CT Chest without contrast (lung screening). TECHNIQUE: Multiple contiguous axial images were obtained through the chest without the use of intravenous contrast according to lung cancer screening protocol. All CT scans use one or more of the following dose optimizing techniques: automated exposure control, MA and/or KvP adjustment based on a patient size and exam type, or iterative reconstruction. HISTORY: [id number] history of smoking. COMPARISON: 09/21/2018. FINDINGS: There is no edema or pneumonia. No pleural effusion. No pneumothorax. No suspicious nodules. There is no axillary or supraclavicular lymphadenopathy. There is no mediastinal lymphadenopathy. Heart size is normal. There are mild coronary artery calcifications. No pericardial effusion. Aorta is normal in caliber. Limited views of the upper abdomen show changes of cholecystectomy. There are no suspicious osseous lesions. IMPRESSION: 1. No suspicious pulmonary nodules. LUNG-RADS CATEGORY: 1 MODIFIER: None. Dictated by: Dictated on workstation # [id number]
== END ==
LOC: RAD 13:23
PROVIDERS: ATTEND Nurse Practitioner Family
DX: Z12.2 Encounter for screening for malignant neoplasm of respiratory organs (principal); F17.210 Nicotine dependence, cigarettes, uncomplicated

== ENCOUNTER → 2020-12-25 | Outpatient (CLI) | payer MEDICAID ==
[~2020-12-25] MED LIST changes: -FOLI1TAB24 PO; +FOLI1TAB33 PO; +GUAI400T83 PO; -GUAI400T85 PO; -MONT10TA26 PO; +MONT10TA32 PO; -PANT40TA3 PO; +PANT40TA52 PO; +RT-ALBUTEROL SULF 2.5 MG/3 ML PRE-MIX VIAL INH ONE; +SERT-414 PO; -SERT100T8 PO
== END ==
LOC: RT 16:58
PROVIDERS: ATTEND Nurse Practitioner Family
DX: J44.9 Chronic obstructive pulmonary disease, unspecified (principal)
CPT/HCPCS: 94060; 94726; 94729

== ENCOUNTER → 2021-02-12 | Outpatient (CLI) | payer MEDICAID ==
[~2021-02-12] MED LIST changes: +GUAI400T62 PO; -GUAI400T83 PO; -RT-ALBUTEROL SULF 2.5 MG/3 ML PRE-MIX VIAL INH ONE
--- NOTE | 2021-02-12 14:13 | Diagnostic Imaging Report ---
EXAMINATION: CT Lung Screening. INDICATION:45 pack-year smoking history. TECHNIQUE: Noncontrast, low-dose CT imaging performed according to the lung cancer screening protocol. Auto Exposure Controls were utilize during the CT exam to meet ALARA standards for radiation dose reduction. COMPARISON:02/12/2020 FINDINGS: The previous CT low dose lung cancer screening exam performed on 02/12/2020 failed to show any suspicious pulmonary nodules. On this exam there is still no parenchymal lung mass to suggest malignancy. There is no sign of an acute cardiopulmonary abnormality either. The heart size is within normal limits. Coronary artery calcifications are noted. The aorta is not abnormally dilated. There is no obvious mediastinal or hilar adenopathy. The thyroid gland was obscured by streak artifact. There is no definite breast mass. The sections through the upper abdomen failed to show any sign of an acute abnormality. The gallbladder is surgically absent. The bone windows are unremarkable for a fracture or for a destructive lesion. IMPRESSION: 1. There is still no parenchymal lung mass to suggest malignancy. I would recommend that the patient have a follow-up low-dose lung cancer screening exam in one year for continued evaluation. 2. There is no acute cardiopulmonary abnormality noted. 3. The heart is not enlarged but there are coronary artery calcifications evident. 4. The gallbladder is surgically absent. LUNG-RADS CATEGORY:1 MODIFIER: OTHER SIGNIFICANT FINDINGS: Dictated by: Dictated on workstation # [id number]
== END ==
LOC: RAD 13:15
PROVIDERS: ATTEND Nurse Practitioner Family
DX: Z12.2 Encounter for screening for malignant neoplasm of respiratory organs (principal); I25.84 Coronary atherosclerosis due to calcified coronary lesion; F17.210 Nicotine dependence, cigarettes, uncomplicated; Z90.49 Acquired absence of other specified parts of digestive tract
CPT/HCPCS: 71271

== ENCOUNTER → 2021-10-08 | Outpatient (CLI) | payer MEDICAID ==
[~2021-10-08] MED LIST changes: +MONT-40 PO; -MONT10TA32 PO; +RT-ALBUTEROL SULF 2.5 MG/3 ML PRE-MIX VIAL INH ONE
[2021-10-08 14:15] LABS: ABG BASE EXCESS 0.1 MMOL/L (-2.5-2.5); ABG OXYGEN SATURATION 99 % (94-100); ABG PCO2 36 MMHG (35-45); ABG PH 7.44 (7.37-7.43); ABG PO2 112 MMHG (79-93); ABG TCO2 24.9 MMOL/L (21.0-31.0)
[2021-10-08 14:18] LABS: ALLENS TEST POSITIVE; INSPIRED O2 RA; PATIENT TEMP 36.7; VENTILATOR NO
--- NOTE | 2021-10-08 14:34 | Diagnostic Imaging Report ---
EXAMINATION: Chest 2 view HISTORY: SHORTNESS OF BREATH COMPARISON: 01/06/2015 FINDINGS: Heart size and pulmonary vasculature are normal. The lungs are clear without consolidation, pleural effusion, or pneumothorax. The osseous structures are intact. IMPRESSION: 1. No acute radiographic abnormality in the chest. Dictated by: Dictated on workstation # [id number]
== END ==
LOC: RT 13:00
PROVIDERS: ATTEND Internal Medicine Critical Care Medicine
DX: R06.02 Shortness of breath (principal)
CPT/HCPCS: 36600; 71046; 82805; 94060; 94621; 94726; 94729

== ENCOUNTER 2021-11-06 20:44 | Outpatient (CLI) | payer MEDICAID ==
[~2021-11-06 20:44] MED LIST changes: -RT-ALBUTEROL SULF 2.5 MG/3 ML PRE-MIX VIAL INH ONE
== END 2021-11-07 06:30 | disposition home or self-care (01) ==
LOC: SLEEP 20:44
PROVIDERS: ATTEND Psychiatry & Neurology Neurology
DX: G47.33 Obstructive sleep apnea (adult) (pediatric) (principal); G47.00 Insomnia, unspecified; G47.10 Hypersomnia, unspecified; I10 Essential (primary) hypertension; E78.00 Pure hypercholesterolemia, unspecified; K21.9 Gastro-esophageal reflux disease without esophagitis; D64.9 Anemia, unspecified; J43.9 Emphysema, unspecified; E11.9 Type 2 diabetes mellitus without complications; F32.9 Major depressive disorder, single episode, unspecified
CPT/HCPCS: 95810

== ENCOUNTER → 2022-11-08 | Outpatient (CLI) | payer MEDICAID ==
[~2022-11-08] MED LIST changes: +ALBU8.5H6 IH; +POTA10CA44 PO; -RT-ALBUINH IH
== END ==
LOC: CARD 10:00
PROVIDERS: ATTEND Internal Medicine Critical Care Medicine
DX: I37.0 Nonrheumatic pulmonary valve stenosis (principal); I27.23 Pulmonary hypertension due to lung diseases and hypoxia; Z86.79 Personal history of other diseases of the circulatory system
CPT/HCPCS: 93306

== ENCOUNTER → 2022-11-16 | Outpatient (CLI) | payer MEDICAID ==
[~2022-11-16] MED LIST changes: +REGADENOSON 0.4 MG/5 ML SYR (LEXISCAN) IV ONE
[2022-11-16] MEDS: CATHETER FLUSH 10 ML SYR IVP PRN ×2 (10:46→13:20)
[2022-11-16 13:19] VITALS: BP 152/93
== END ==
LOC: CARD 10:29
PROVIDERS: ATTEND Internal Medicine Cardiovascular Disease
DX: R06.09 Other forms of dyspnea (principal)
CPT/HCPCS: 78452; 93017